=== PATIENT | female | born 1980 | race Caucasian/White ===

== ENCOUNTER → 2021-05-13 15:08 | Outpatient (BNVA) | payer OTHER, SELFPAY | PROVIDERS: PCP Pediatrics; Visit Provider Nurse Practitioner Family | DX: M47.22 Other spondylosis with radiculopathy, cervical region (principal) | CPT/HCPCS: 99202 ==

== ENCOUNTER 2021-07-22 06:18 | Outpatient (REF) | payer OTHER, SELFPAY ==
--- NOTE | ~2021-07-22 | FL_ITS ---
EXAMINATION: XR FLUOROSCOPY WITH IMAGES CLINICAL INFORMATION: M47.22 - Other spondylosis with radiculopathy cervical COMPARISON: None. TECHNIQUE: Fluoroscopy performed by Dr. Pino. Fluoroscopy time: 0.1 minutes DAP: 0.279 Gycm2 Images: 1 image is saved (AP view). FL/FL guidance in treatment room FINDINGS AND IMPRESSION: Fluoroscopic imaging equipment utilized during a cervical spine injection procedure. There is a right-sided positioning of a spinal needle at the C7-T1 level with flow of iodinated contrast around and superior to the needle tip. Please refer to the procedure report.
== END 2021-07-22 06:19 | disposition home or self-care (01) ==
LOC: HO.RADIR 06:18
PROVIDERS: Visit Provider Anesthesiology
DX: M47.22 Other spondylosis with radiculopathy, cervical region (principal)
CPT/HCPCS: J1100; J3300; Q9967

== ENCOUNTER 2022-06-07 21:43 | Emergency (ER) | payer OTHER, SELFPAY ==
--- NOTE | ~2022-06-07 | XR_ITS ---
EXAMINATION: XR CHEST CLINICAL INFORMATION: Shortness of breath COMPARISON: None TECHNIQUE: Frontal view of the chest was obtained. FINDINGS: The lungs are clear. No airspace consolidation, pleural effusion, or pneumothorax. The cardiomediastinal silhouette is within normal limits. No acute osseous injury. XR/XR chest 1V IMPRESSION: 1. No acute pulmonary process.
[2022-06-07 21:47] VITALS: BP 147/66; PULSE 110; RESP 20; TEMP 37.3; O2SAT 98; BMI 27.1
--- NOTE | 2022-06-07 22:17 | ED.ASTHMA ---
HPI - Asthma General Chief Complaint: Asthma Stated Complaint: Asthma Time Seen by Provider: 06/07/22 22:05 Source: patient Mode of arrival: ambulatory Limitations: no limitations History of Present Illness HPI Narrative: Patient comes to the emergency room complaining of 5 days of worsening cough, wheezing. Patient has been using her inhaler Related Data Home Medications Medication Instructions Recorded Confirmed albuterol sulfate 90 mcg/actuation 2 puff inhalation Q4H PRN wheezing 05/13/21 aerosol inhaler (ProAir HFA) clonazepam 2 mg tablet 2 mg PO TID PRN 05/13/21 cyclobenzaprine 10 mg tablet 10 mg PO TID PRN muscle spasm 05/13/21 fluoxetine 40 mg capsule 40 mg PO DAILY 05/13/21 ibuprofen 800 mg tablet 800 mg PO Q8H PRN pain 05/13/21 zolpidem 5 mg tablet 5 mg PO BEDTIME PRN 05/13/21 Previous Rx's Medication Instructions Recorded tizanidine 2 mg tablet 2 mg PO BEDTIME PRN muscle 05/28/21 spasticity #30 tabs albuterol sulfate 2.5 mg/3 mL 2.5 mg (3 mL) inhalation Q4-6H PRN 06/08/22 (0.083 %) solution for nebulization shortness of breath or wheezing #75 mL albuterol sulfate 90 mcg/actuation 2 puff inhalation Q4-6H PRN 06/08/22 aerosol inhaler shortness of breath or wheezing #8.5 grams prednisone 50 mg tablet 50 mg PO DAILY #5 tabs 06/08/22 Allergies Allergy/AdvReac Type Severity Reaction Status Date / Time No Known Allergies Allergy Verified 07/22/21 11:21 [facility] Past Medical History Medical History (Updated 06/07/22 @ 23:35 by Kari Ramirez MD) Anxiety Asthma Chronic post-traumatic stress disorder Long-term current use of anxiolytic medication Nonintractable headache Paresthesias Social History Social History Alcohol intake: current Alcohol intake frequency: holidays/special occasions only Patient Tobacco Use Status: Former Tobacco user Use of substances other than those prescribed or required for medical reasons: No Advance Directives: No Advance Directives Information Provided: No Patient : No Physical Exam Vital Signs: Vital Signs: Last Vital Signs Temp 98.4 F 06/08/22 00:44 Pulse 112 H 06/08/22 01:01 Resp 22 H 06/08/22 01:01 BP 143/74 H 06/08/22 00:44 Pulse Ox 99 06/08/22 00:44 O2 Del Method 06/08/22 00:44 BMI result Body Mass Index 27.1 Course Course Course Narrative: Patient also complaining of a migraine headache, requesting Fioricet which she takes at home After an hour long treatment, patient is overall feeling better, patient is still a bit wheezy. An additional hour long treatment has been requested. A thin saturation 98% on room air Patient minimally wheezing, moving air within normal limits, oxygen saturation remains at 99% on room air. MDM - Asthma Lab Data Labs: Lab Results 06/07/22 Range/Units 22:08 COVID-19 (SILVA) Negative (Negative) COVID-19 Clin Com See Note Imaging Data Chest x-ray: Radiologist's impression: FINDINGS: The lungs are clear. No airspace consolidation, pleural effusion, or pneumothorax. The cardiomediastinal silhouette is within normal limits. No acute osseous injury. XR/XR chest 1V IMPRESSION: ? 1. No acute pulmonary process. Discharge Plan Discharge Clinical Impression: Asthma with acute exacerbation, Headache, migraine Patient Disposition: Home, Self-Care Instructions: Asthma (ED), Migraine Headache (ED) Additional Instructions: Please follow-up with your primary care physician tomorrow. If you have any worsening or new symptoms, please return to the emergency room or call 911 Prescriptions: New prednisone 50 mg tablet 50 mg PO DAILY Qty: 5 0RF albuterol sulfate 2.5 mg /3 mL (0.083 %) solution for nebulization 2.5 mg inhalation Q4-6H PRN (Reason: shortness of breath or wheezing) Qty: 75 0RF albuterol sulfate 90 mcg/actuation HFA aerosol inhaler 2 puff inhalation Q4-6H PRN (Reason: shortness of breath or wheezing) Qty: 8.5 1RF No Action tizanidine 2 mg tablet 2 mg PO BEDTIME PRN (Reason: muscle spasticity) Qty: 30 0RF Rx Instructions: Stop cyclobenzaprine and trial tizanidine. Start with 1/2 tab, as medication can be sedating. clonazepam 2 mg tablet 2 mg PO TID PRN cyclobenzaprine 10 mg tablet 10 mg PO TID PRN (Reason: muscle spasm) fluoxetine 40 mg capsule 40 mg PO DAILY albuterol sulfate [ProAir HFA] 90 mcg/actuation HFA aerosol inhaler 2 puff inhalation Q4H PRN (Reason: wheezing) zolpidem 5 mg tablet 5 mg PO BEDTIME PRN ibuprofen 800 mg tablet 800 mg PO Q8H PRN (Reason: pain)
[2022-06-07] MEDS: Albuterol Sulfate (0.083%) 2.5 MG/3 ML VIAL.NEB 10 MG INHALE (22:37)
[2022-06-07 22:39] VITALS: PULSE 110; RESP 20
[2022-06-07 22:57] LABS: COVID-19 Test Negative (Negative); IDNOW Serial# 16C4AD1C
[2022-06-07] MEDS: methylPREDNISolone Sod Succ 125 MG/2 ML VIAL IVPUSH (23:04)
[2022-06-07] MEDS: Magnesium Sulfate/H2O 2 GM/50 ML PIGGYBACK IV (23:04)
--- NOTE | 2022-06-07 23:09 | PC.NURSE ---
patient a&ox3, lungs in/ex wheezing, iv inserted, pt medicated per order, call capellan within reach, will continue to monitor.
[2022-06-08] MEDS: Butalb/Acetamin/Caff 50/325/40 TABLET 1 TAB PO (00:26)
[2022-06-08 00:44] VITALS: BP 143/74; PULSE 98; RESP 18; TEMP 36.9; O2SAT 99
[2022-06-08] MEDS: Albuterol Sulfate (0.083%) 2.5 MG/3 ML VIAL.NEB 10 MG INHALE (01:00)
[2022-06-08 01:01] VITALS: PULSE 112; RESP 22; O2SAT 98
[2022-06-08] MEDS: Lidocaine HCl Viscous 2 % 15 ML SOLUTION MUCOUS MEM (01:43)
--- NOTE | 2022-06-08 01:50 | PC.NURSE ---
pt a&o, no chest pain. pt does have a dry cough. Pt medicated per Nov. Will continue to monitor.
[2022-06-08 04:24] VITALS: BP 120/71; PULSE 106; RESP 20; O2SAT 97
--- NOTE | 2022-06-08 04:25 | PC.NURSE ---
Reviewed discharge instruction with pt. pt verbalized understanding. O2 97 percent at discharge.
--- NOTE | 2022-06-08 04:28 | PC.NURSE ---
pt refusing inhaler at discharge, provider aware and new scrpit sent to pharmacy.
== END 2022-06-08 04:31 | disposition home or self-care (01) ==
PROVIDERS: Emergency Provider Emergency Medicine
DX: J45.901 Unspecified asthma with (acute) exacerbation (principal); G43.909 Migraine, unspecified, not intractable, without status migrainosus; Z20.822 Contact with and (suspected) exposure to COVID-19; Z87.891 Personal history of nicotine dependence; Z79.899 Other long term (current) drug therapy
CPT/HCPCS: 71045; 87635; 94640; 96365; 96366; 96375; 99284; 99285; J2930; J3475

== ENCOUNTER → 2022-07-08 16:52 | Outpatient (BNVA) | payer OTHER, SELFPAY | PROVIDERS: Visit Provider Anesthesiology | DX: M47.22 Other spondylosis with radiculopathy, cervical region (principal) | CPT/HCPCS: 99212 ==

== ENCOUNTER 2022-08-11 23:32 | Emergency (ER) | payer OTHER, SELFPAY ==
--- NOTE | ~2022-08-11 | CT_ITS ---
EXAMINATION: NONCONTRAST HEAD CT NONCONTRAST MAXILLOFACIAL CT NONCONTRAST CERVICAL SPINE CT INDICATION INFORMATION: Fall, pain COMPARISON: None TECHNIQUE: Separate noncontrast CT examinations of the head, maxillofacial bones, and cervical spine were performed. Coronal and sagittal images were created for each examination at the technologist workstation. DOSE LOWERING TECHNIQUES: This CT examination was performed using dose optimization techniques as appropriate, variously including the following: - Automated exposure control - Adjustment of mA and/or kV according to patient size (this includes techniques or standardized protocols for targeted exams were dose is matched to indication/reason for exam; i.e. extremities or head) - Use of iterative reconstruction technique DLP: 1408 mGy-cm FINDINGS: Head: There is a 5 mm hyperattenuating focus adjacent to the anterior falx on image 58/86, suspicious for trace subarachnoid hemorrhage. There is no evidence of acute territorial infarction. No abnormal mass-effect or midline shift is seen. Anguiano to white matter differentiation is well preserved. No extra-axial fluid collections are identified. The ventricles are normal in size. There is no abnormal attenuation within the brain parenchyma. No acute calvarial fracture is seen. The mastoid air cells are well aerated. Maxillofacial: There is a mildly displaced, comminuted fractures of the nasal bone with adjacent soft tissue swelling extending into the inferior frontal region. The frontal, maxillary, ethmoid, and sphenoid sinuses are well aerated. The uncinate process is normal bilaterally. The infundibula and middle meati are patent. There is leftward spurring of the nasal septum. The mandibular condyles are well-seated in the condylar fossa. The orbits demonstrate a normal appearance bilaterally. The globes are intact, and there are no suspicious findings to suggest retrobulbar hemorrhage. Cervical spine: There is anatomic alignment of the vertebral bodies and posterior elements. Vertebral body heights are maintained. There is mild disc space narrowing in the lower cervical spine with associated endplate osteophytes. No evidence of acute fracture. No prevertebral soft tissue swelling. Visualized portions of the lung apices are unremarkable. The thyroid gland is unremarkable. CT/CT cervical spine wo IV con IMPRESSION: 1. Small focus of hyperattenuation adjacent to the anterior falx, suspicious for trace subarachnoid hemorrhage. 2. Mildly displaced, comminuted nasal bone fracture with adjacent soft tissue swelling extending into the inferior frontal region. 3. No acute findings identified in the cervical spine. This critical result was discussed with Dr. Naidu on 08/12/2022 1:16 AM, and it was ascertained that the content and urgency of the report was understood at the time of direct communication.
--- NOTE | ~2022-08-11 | XR_ITS ---
EXAMINATION: XR CHEST CLINICAL INFORMATION: Fall with pain COMPARISON: 06/07/2022 TECHNIQUE: 2 views of the chest were obtained. FINDINGS: The lungs are hyperinflated compatible with COPD. The heart and pulmonary vessels appear normal. No infiltrates, effusions or lung masses are seen. No fractures are noted involving the bony thorax. XR/XR chest 2V IMPRESSION: COPD. No acute intrathoracic disease.
[2022-08-11 23:33] VITALS: BP 123/85; PULSE 92; RESP 16; TEMP 36.3; O2SAT 100; BMI 27.4
--- NOTE | 2022-08-11 23:46 | ED_ITS ---
HPI - Fall General Chief Complaint: Fall Stated Complaint: fall, hit head Time Seen by Provider: 08/11/22 23:46 Source: patient Mode of arrival: ambulatory Limitations: no limitations History of Present Illness HPI Narrative: 42-year-old female history of carpal tunnel syndrome of right wrist, cervical radiculopathy presenting to the emergency department status post tripping over box falling forward, face planting on the ground, hitting her head on a table, sustaining a laceration overlying right eyebrow. Patient tells me that when she fell she hit her head and lost consciousness for unknown amount of time she last remembers being awake at around 21:00. She tells me she was walking in a dark room to bring her child juice and tripped over a box. This was not witnessed by anyone. Patient is not on blood thinners. Patient complaining of headache, facial pain. Denies preceding symptoms to fall such as chest pain, shortness of breath, dizziness, vision changes, headache. At this time patient denies chest pain, shortness of breath, nausea, vomiting, abdominal pain, vision changes, dizziness, numbness, tingling, urinary/bowel incontinence/retention, back pain, numbness, tingling, saddle paresthesias. Denies alcohol abuse. Related Data Home Medications Medication Instructions Recorded Confirmed fluoxetine 40 mg capsule 40 mg PO DAILY 05/13/21 07/08/22 ibuprofen 800 mg tablet 800 mg PO Q8H PRN pain 05/13/21 07/08/22 zolpidem 5 mg tablet 5 mg PO BEDTIME PRN 05/13/21 07/08/22 Previous Rx's Medication Instructions Recorded albuterol sulfate 2.5 mg/3 mL 2.5 mg (3 mL) inhalation Q4-6H PRN 06/08/22 (0.083 %) solution for nebulization shortness of breath or wheezing #75 mL albuterol sulfate 90 mcg/actuation 2 puff inhalation Q4-6H PRN 06/08/22 aerosol inhaler shortness of breath or wheezing #8.5 grams fluticasone propionate 45 2 puff inhalation BID #8 grams 06/08/22 mcg-salmeterol 21 mcg/actuation HFA inhaler (Advair HFA) prednisone 50 mg tablet 50 mg PO DAILY #5 tabs 06/08/22 cyclobenzaprine 10 mg tablet 10 mg PO BEDTIME PRN muscle spasm 08/11/22 #7 tabs lidocaine 5 % topical patch 1 patch topical DAILY PRN pain #15 08/11/22 ea Allergies Allergy/AdvReac Type Severity Reaction Status Date / Time No Known Allergies Allergy Verified 08/11/22 23:38 Review of Systems Review of Systems: Constitutional : No Weight loss, No Fever, No Chills, No Fatigue, No Malaise ENT/Mouth : No sore throat, No Rhinorrhea, + facial pain Eyes: No Eye Pain, No Swelling, No Redness Cardiovascular : No Chest Pain, No SOB, No Dyspnea on Exertion, No Orthopnea, No Edema, No Palpitations Respiratory : No Cough, No Sputum, No Wheezing Gastrointestinal : No Nausea, No Vomiting, No Diarrhea, No Constipation, No abdominal Pain, No Hematochezia, No Melena Genitourinary : No Dysuria, No Urinary Frequency, No Hematuria, Musculoskeletal : No joint pain, No Myalgias, No Joint Swelling Skin : No Skin Lesions, No rash, + laceration Neuro : No Weakness, No Numbness, No Dizziness, + Headache Psych : No Anxiety/Panic, No Depression All other systems reviewed and are negative Yes all other systems are reviewed and are negative [facility] Past Medical History Attestation statement: The following information was validated with the patient. Source: old records reviewed and nursing notes reviewed Medical History Anxiety Asthma Chronic post-traumatic stress disorder Long-term current use of anxiolytic medication Nonintractable headache Paresthesias Social History Social History Alcohol intake: current Alcohol intake frequency: holidays/special occasions only Patient Tobacco Use Status: Former Tobacco user Advance Directives: No Advance Directives Information Provided: Yes Physical Exam Vital Signs: Vital Signs: Last Vital Signs Temp 97.3 F 08/11/22 23:33 Pulse 92 08/11/22 23:33 Resp 16 08/11/22 23:33 BP 123/85 08/11/22 23:33 Pulse Ox 100 08/11/22 23:33 O2 Del Method 08/11/22 23:33 BMI result Body Mass Index 27.4 vss Appearance: Alert.? Oriented X3.? No acute distress.? Head: Normocephalic, atraumatic, no step-offs or deformities Eyes: Pupils equal, round and reactive to light.? Extraocular movements intact and pain-free. ENT: Pharynx normal.? Pain with palpation overlying facial bone and zygomatic area. Neck: Normal inspection.? Neck supple.? CVS: Normal heart rate and rhythm.? Pulses normal.? Respiratory: No respiratory distress.? Breath sounds normal.? Abdomen: Soft and nontender.? Skin: Skin warm and dry.? Normal skin color.? Normal skin turgor.?+ 2 cm linear laceration overlying right eyebrow, no evidence of foreign bodies within. + small lac to upper lip Extremities: No lower extremity edema.? No calf ttp. 5/5 strength to bilateral upper and lower extremities Back: No midline tenderness, no C-spine tenderness, full range of motion, no CVA tenderness bilaterally Neuro: Oriented X 3.? No motor deficit.? No sensory deficit. CN 2-12 intact . Patient following commands. Normal [id number], [id number], steady tandem gait with normal coordination. Course Reevaluation(s) Reevaluation #1: Labs ordered, CT scans ordered and pending. Trauma scan will be done. Laceration repaired. Sign out to doctors [facility]. Fentanyl will be given for pain. Dr. Naidu feels no need for CT abd and pelvis or chest. He will do a fast scan. Time: 00:12 MDM - Fall [facility] Narrative Medical decision making narrative: [id number] 42-year-old female presents status post trip and fall, hitting her face on a table, sustaining laceration to right eyebrow, pain to nose. Complaints of headache, facial pain. Not on blood thinners. Denies EtOH. Physical examination with laceration overlying right eyebrow and laceration to right upper lip, pain with palpation of nose, and zygomatic area. Neuro nonfocal. Cerebellar intact. Patient following commands alert and oriented x4. Regular rate and rhythm. Lungs clear, abdomen soft nontender nondistended. GCS of 15, NIH stroke scale 0. Concerns for possible concussion, will rule out facial fractures. Concerns for possible nasal fracture. Will repair lacerations. Will rule out intracranial hemorrhage, subarachnoid hemorrhage, internal bleeding. Unlikely stroke, posterior stroke. Plan at this time is to obtain imaging, a repair laceration of eyebrow no need to repair lip lac. Medical Records Attestation: I reviewed the patient's medical records. Lab Data Attestation: I reviewed the patient's lab results. Result diagrams: 08/12/22 00:04 08/12/22 00:04 Labs: Lab Results 08/12/22 08/12/22 Range/Units 00:04 00:04 WBC 10.6 (4.8-10.8) X10*3/uL RBC 4.18 L (4.20-5.50) X10*6/uL Hgb 12.6 (12.0-16.0) g/dl Hct 37.8 (37.0-47.0) % MCV 90.4 (80.0-98.0) fL MCH 30.1 (27.0-33.0) pg MCHC 33.3 (31.0-35.0) g/dl RDW 13.3 (11.0-16.0) % Plt Count 259 (160-400) X10*3/uL MPV 9.7 (9.4-12.3) fL Immature Gran % (Auto) 0.6 H (0.0-0.4) % Neut % (Auto) 79.8 H (45-73) % Lymph % (Auto) 11.7 L (20-40) % Ashley % (Auto) 6.1 (2-11) % Eos % (Auto) 1.4 (0-4) % Baso % (Auto) 0.4 (0-2) % Lymph # (Auto) 1.2 (1.2-4.9) X10*3/uL Ashley # (Auto) 0.7 (0.1-1.2) X10*3/uL Eos # (Auto) 0.2 (0.0-0.4) X10*3/uL Baso # (Auto) 0.0 (0.0-0.2) X10*3/uL Abs Immat Gran (auto) 0.06 H (0.00-0.03) X10*3/uL Absolute Neuts (auto) 8.5 H (2.0-8.3) x10*3/uL Absolute Nucleated RBC 0.000 (0.0-0.012) X10*3/uL Nucleated RBC % (auto) 0.0 (0.0-0.2) /100WBC PT 11.4 (10.0-13.1) SEC INR 1.0 (0.9-1.1) Critical Care Time Critical Care Time Critical Care Time: No Discharge Plan Discharge Clinical Impression: Concussion with loss of consciousness, Laceration, Nose pain, Closed TBI (traumatic brain injury) Patient Disposition: Home, Self-Care Instructions: Concussion (ED), Post Concussion Syndrome (ED) Additional Instructions: Take your medications as prescribed. If you were prescribed antibiotics today, it is important that you take your medication to their entirety, do not skip any doses, do not finish them early. Follow-up with your primary care provider this week. Follow up with neurology Return to the emergency department with new or worsening symptoms. Such as fevers, chills, chest pain, shortness of breath, nausea, vomiting, dizziness, headache, vision changes, lethargy In case of emergency call 911 Return in 5-7 days for suture removal. Please rest her brain, limit screen time, do not participate in sports for 2-3 weeks or until medically cleared. You likely have a concussion. Please return with any signs and symptoms of post concussive syndrome such as headache, vision changes, dizziness, or any new or worsening symptoms such as altered mental status, seizure-like activity. You can take ibuprofen every 6 hours, Tylenol every 4 as needed for pain or discomfort. Prescriptions: New cyclobenzaprine 10 mg tablet 10 mg PO BEDTIME PRN (Reason: muscle spasm) Qty: 7 0RF lidocaine 5 % adhesive patch,medicated 1 patch topical DAILY PRN (Reason: pain) Qty: 15 0RF Rx Instructions: leave on most painful area for up to 12 hrs No Action prednisone 50 mg tablet 50 mg PO DAILY Qty: 5 0RF albuterol sulfate 2.5 mg /3 mL (0.083 %) solution for nebulization 2.5 mg inhalation Q4-6H PRN (Reason: shortness of breath or wheezing) Qty: 75 0RF albuterol sulfate 90 mcg/actuation HFA aerosol inhaler 2 puff inhalation Q4-6H PRN (Reason: shortness of breath or wheezing) Qty: 8.5 1RF Advair HFA 45-21 mcg/actuation HFA aerosol inhaler 2 puff inhalation BID Qty: 8 0RF Rx Instructions: administer with spacer fluoxetine 40 mg capsule 40 mg PO DAILY zolpidem 5 mg tablet 5 mg PO BEDTIME PRN ibuprofen 800 mg tablet 800 mg PO Q8H PRN (Reason: pain) Referrals: [facility] [place] Group] - 1 week Physician,Unknown J [Primary Care Provider] - 2 days
--- OUTSIDE RECORDS SUMMARY | 2022-08-12 00:05 | XMS_ITS | Continuity of Care Document ---
:1980 Author Organization [facility] Address [address] [place] [address]- Care Team Providers Name Role Phone Gale KIRBY, Laurence Primary Care Physician [phone] Encounter [facility] Date(s): 04/15/22 - 05/15/22 [facility] [address] [place], [place] [address] Allergies, Adverse Reactions, Alerts No Known Allergies Immunizations Given and Recorded Vaccine Date Status Refusal Reason pneumococcal 23-valent vaccine 08/11/11 Given influenza virus vaccine, inactivated 08/11/11 Given influenza virus vaccine, inactivated 09/17/08 Given Medications albuterol 0.083% inhalation solution 3 mL = 2.5 mg, Inhalation, Every 6 hours, PRN Wheezing/Shortness of Breath, # 360 mL, 0 Refills, Maintenance, Solution Start Date: 10/09/11 Stop Date: 11/08/11 Status: Orderedalbuterol 0.083% inhalation solution 3 mL = 2.5 mg, Inhalation, Every 6 hours, # 36 mL, 0 Refills, Maintenance, Solution Start Date: 10/09/11 Stop Date: 10/12/11 Status: Orderedalbuterol CFC free 90 mcg/inh inhalation aerosol 1 puffs, Inhalation, 4 times a day, PRN for wheezing, # 18 Gm, 0 Refills, Maintenance, Aerosol Start Date: 10/09/11 Stop Date: 11/08/11 Status: Orderedclonazepam 2 mg oral tablet 1 tablet = 2 mg, By Mouth, 3 times a day, # 9 tablet, 0 Refills, Maintenance, Tablet Start Date: 10/09/11 Stop Date: 10/12/11 Status: OrderedSymbicort 80mcg/4.5mcg Inhaler 2 puffs, Inhalation, 2 times a day, # 10 Gm, 0 Refills, Maintenance, Aerosol Start Date: 10/09/11 Stop Date: 11/08/11 Status: Ordered Problem List Condition Effective Dates Status Health Status Informant Anxiety disorder(Confirmed) Active Asthma - currently active(Confirmed) Active PPH - 02/01/08 Active hemorrhage(Confirmed)1 1PPH at delivery, no transfusion. Care Team PersonnelName: Gale KIRBY , Laurence Address: [address] [place] [address]
[2022-08-12 00:10] LABS: Basophils Percent Auto 0.4 % (0-2); Eosinophils Absolute Auto 0.2 X10*3/uL (0.0-0.4); Eosinophils Percent Auto 1.4 % (0-4); Hematocrit 37.8 % (37.0-47.0); Hemoglobin 12.6 g/dl (12.0-16.0); Imm Gran Abs Auto 0.06 X10*3/uL (0.00-0.03); Imm Gran Pct Auto 0.6 % (0.0-0.4); Lymphocytes Absolute Auto 1.2 X10*3/uL (1.2-4.9); Lymphocytes Percent Auto 11.7 % (20-40); MANUAL DIFF FLAG NO; Mean Corpuscular HGB Conc 33.3 g/dl (31.0-35.0); Mean Corpuscular Hemoglobin 30.1 pg (27.0-33.0); Mean Corpuscular Volume 90.4 fL (80.0-98.0); Mean Platelet Volume 9.7 fL (9.4-12.3); Monocytes Absolute Auto 0.7 X10*3/uL (0.1-1.2); Monocytes Percent Auto 6.1 % (2-11); Neutrophils Absolute Auto 8.5 x10*3/uL (2.0-8.3); Neutrophils Percent Auto 79.8 % (45-73); Platelet Count 259 X10*3/uL (160-400); Red Blood Count 4.18 X10*6/uL (4.20-5.50); Red Cell Distribution Width 13.3 % (11.0-16.0); White Blood Count 10.6 X10*3/uL (4.8-10.8)
[2022-08-12 00:15] LABS: Prothrombin Time 11.4 SEC (10.0-13.1)
[2022-08-12 00:16] VITALS: RESP 17
[2022-08-12] MEDS: fentaNYL citrate/PF 100 MCG/2 ML VIAL 25 MCG IVPUSH (00:16)
[2022-08-12] MEDS: Diphth,Pertus(ACell),Tet Adult 0.5 ML SYRINGE IM (00:17)
[2022-08-12] MEDS: 0.9 % Sodium Chloride 1,000 ML 999 ML IV (00:19)
[2022-08-12 00:24] LABS: Ethanol < 10 mg/dL
[2022-08-12 00:27] LABS: Alanine Aminotransferase 16 U/L (0-31); Albumin Level 4.4 g/dL (3.5-5.0); Alkaline Phosphatase 80 U/L (39-117); Anion Gap 13 (12-20); Aspartate Amino Transferase 19 U/L (5-31); Bilirubin Total 0.2 mg/dL (0.0-1.0); Blood Urea Nitrogen 10 mg/dL (9-16); Calcium 9.7 mg/dL (8.4-10.2); Carbon Dioxide 22 mmol/L (22-29); Chloride 106 mmol/L (96-108); Creatinine Clr Calc Pharmacy 99.2; Estimated Glomerular Filt Rate > 60; Glucose Random 131 mg/dL (60-115); Potassium 4.1 mmol/L (3.3-5.1); Sodium 137 mmol/L (135-145); Total Protein 6.9 g/dL (6.5-8.0)
--- NOTE | 2022-08-12 00:31 | PC.NURSE ---
patient to imaging at this time.
[2022-08-12 00:58] LABS: HCG Quantitative < 2 mIU/mL
[2022-08-12 06:37] LABS: Influenza A PCR NEGATIVE (Negative); Influenza B PCR NEGATIVE (Negative)
[2022-08-12 06:38] LABS: Resp Syncy Virus RNA Qual PCR NEGATIVE (Negative); SARS COV2 PCR INHOUSE NEGATIVE (Negative)
== END 2022-08-12 06:11 | disposition home or self-care (01) ==
LOC: HO.ED 08-12 00:03
PROVIDERS: Physician Assistant; Emergency Provider Internal Medicine
DX: S06.0XAA Concussion with loss of consciousness status unknown, initial encounter (principal); S01.111A Laceration without foreign body of right eyelid and periocular area, initial encounter; S01.511A Laceration without foreign body of lip, initial encounter; W01.190A Fall on same level from slipping, tripping and stumbling with subsequent striking against furniture, initial encounter; J34.89 Other specified disorders of nose and nasal sinuses; Z20.822 Contact with and (suspected) exposure to COVID-19; Z87.891 Personal history of nicotine dependence; Y93.89 Activity, other specified; Y92.032 Bedroom in apartment as the place of occurrence of the external cause; Y99.9 Unspecified external cause status
CPT/HCPCS: 0241U; 12011; 36415; 70450; 70486; 71046; 72125; 80053; 82077; 82550; 84702; 85025; 85610; 90471; 90715; 96374; 99282; 99284; J3010

== ENCOUNTER 2022-08-22 20:47 | Emergency (ER) | payer OTHER, SELFPAY ==
--- NOTE | ~2022-08-22 | CT_ITS ---
EXAMINATION: CT HEAD WITHOUT CONTRAST CLINICAL INFORMATION: 08/02 small subarachnoid, fell again 08/20 LOC COMPARISON: CT head 08/12/2022 TECHNIQUE: Contiguous axial imaging was performed from the skull base to vertex without intravenous administration of contrast. Coronal and sagittal reformatted images are performed at the CT scanner. [This CT examination was performed using dose optimization techniques as appropriate, variously including the following: *Automated exposure control *Adjustment of mA and/or kV according to patient size (this includes techniques or standardized protocols for targeted exams where dose is matched to indication/reason for exam; i.e. extremities or head) *Use of iterative reconstruction technique] DLP: 622 mGy-cm. FINDINGS: There is no evidence of acute intracranial hemorrhage or acute territorial infarction. The previously seen small acute hemorrhage on prior CAT scan 08/12/2022 adjacent to the right side of the anterior falx has resolved. No abnormal mass-effect or midline shift is seen. Anguiano to white matter differentiation is well preserved. No extra-axial fluid collections are identified. The ventricles are normal in size. There is no abnormal attenuation within the brain parenchyma. There is no osseous abnormality. The mastoid air cells and visualized portions of the paranasal sinuses are well-aerated. CT/CT head/brain wo IV con IMPRESSION: No acute intracranial pathology.
[2022-08-22 20:54] VITALS: BP 140/78; PULSE 106; RESP 17; TEMP 36.8; O2SAT 96; BMI 23.0
--- NOTE | 2022-08-22 21:07 | ED.GENADULT ---
HPI - General Adult General Chief complaint: General Medical Stated complaint: suture removal,fell 08/21 laceration back of head Time Seen by Provider: 08/22/22 20:53 Source: patient Mode of arrival: ambulatory Limitations: no limitations History of Present Illness HPI narrative: Patient comes to the emergency room accompanied by her mother. patient is here to have her sutures removed in her eyebrow. On August 11, patient fell, she had a punctured subarachnoid hemorrhage and was transferred to [facility] from this hospital. Patient has been having continuous headaches since then also complaining lightheadedness, dizziness. Patient states that 2 days ago, patient fell again, landed on the back of her head unless consciousness. Patient states that she did not have transport to come the hospital and did not come. Patient had a laceration to her scalp 2 days ago, states that she treated it by herself at home. Related Data Home Medications Medication Instructions Recorded Confirmed fluoxetine 40 mg capsule 40 mg PO DAILY 05/13/21 07/08/22 ibuprofen 800 mg tablet 800 mg PO Q8H PRN pain 05/13/21 07/08/22 zolpidem 5 mg tablet 5 mg PO BEDTIME PRN 05/13/21 07/08/22 Previous Rx's Medication Instructions Recorded albuterol sulfate 2.5 mg/3 mL 2.5 mg (3 mL) inhalation Q4-6H PRN 06/08/22 (0.083 %) solution for nebulization shortness of breath or wheezing #75 mL albuterol sulfate 90 mcg/actuation 2 puff inhalation Q4-6H PRN 06/08/22 aerosol inhaler shortness of breath or wheezing #8.5 grams fluticasone propionate 45 2 puff inhalation BID #8 grams 06/08/22 mcg-salmeterol 21 mcg/actuation HFA inhaler (Advair HFA) prednisone 50 mg tablet 50 mg PO DAILY #5 tabs 06/08/22 cyclobenzaprine 10 mg tablet 10 mg PO BEDTIME PRN muscle spasm 08/11/22 #7 tabs lidocaine 5 % topical patch 1 patch topical DAILY PRN pain #15 08/11/22 ea cephalexin 500 mg tablet 500 mg PO Q6H 10 days #40 tabs 08/12/22 oxycodone 5 mg tablet 5 mg PO BID PRN pain #7 tabs 08/22/22 Allergies Allergy/AdvReac Type Severity Reaction Status Date / Time No Known Allergies Allergy Verified 08/11/22 23:38 Review of Systems Review of Systems: Constitutional : No Weight loss, No Fever, No Chills, No Night Sweats, No Fatigue, No Malaise ENT/Mouth : No Hearing loss, No Ear Pain, No Nasal Congestion, No Sinus Pain, No Hoarseness, No sore throat, No Rhinorrhea, No Swallowing Difficulty Eyes: No Eye Pain, No Swelling, No Redness, No Foreign Body, No Discharge, No Vision Changes Cardiovascular : No Chest Pain, No SOB, No Dyspnea on Exertion, No Orthopnea, No Edema, No Palpitations Respiratory : No Cough, No Sputum, No Wheezing, No Smoke Exposure, No Dyspnea Gastrointestinal : No Nausea, No Vomiting, No Diarrhea, No Constipation, No abdominal Pain, No Hematochezia, No Melena Genitourinary : no irregular bleeding, No Dysuria, No Urinary Frequency, No Hematuria, No Urinary Incontinence, No Urgency, No Flank Pain, No Urinary Flow Changes, No Hesitancy Musculoskeletal : No joint pain, No Myalgias, No Joint Swelling Skin : Laceration and eyebrow healing, new laceration in the back of the head 48+ hours now treated at home Neuro : No Weakness, No Numbness, No Paresthesias, No Loss of Consciousness, complaining of constant headache since August 12 and multiple episodes of dizziness since the fall On August 12 Psych : No Anxiety/Panic, No Depression, No SI/HI/AH/VH, No Social Issues, Heme/Lymph: No Bruising, No Bleeding,No Lymphadenopathy Endocrine : No Polyuria, No Polydipsia, No Temperature Intolerance [facility] Past Medical History Medical History Anxiety Asthma Chronic post-traumatic stress disorder Long-term current use of anxiolytic medication Nonintractable headache Paresthesias Social History Social History Alcohol intake: current Alcohol intake frequency: holidays/special occasions only Patient Tobacco Use Status: Former Tobacco user Advance Directives: No Advance Directives Information Provided: No Physical Exam ED Vital Signs: Vital Signs - 24 hr 08/22/22 20:54 08/22/22 22:38 Temperature 98.3 F 97.4 F Pulse Rate 106 H 80 Respiratory Rate 17 18 Blood Pressure 140/78 H 148/86 H Pulse Oximetry 96 100 Oxygen Delivery Method Room Air Room Air BMI result Body Mass Index 23.0 Const Other: Appearance: Alert. Oriented X3. No acute distress. Eyes: Pupils equal, round and reactive to light. ENT: Pharynx normal. Neck: Normal inspection. Neck supple. No lymph nodes noted. No crepitus CVS: Normal heart rate and rhythm. Pulses normal. Normal S1 and S2 Respiratory: No respiratory distress. Breath sounds normal. No Wheezing. No rales Abdomen: Soft and nontender. No rigidity. No distention. Skin: Skin warm and dry. wheeled healed laceration in left eyebrow. Laceration in scalp is healing as well, no signs of cellulitis, Extremities: No lower extremity edema. No Lacerations. No Rash Neuro: Oriented X 3. No motor deficit. No sensory deficit. Moving all extremities. No slurred speech. CN 2 through 12 grossly intact Psych: calm, cooperative, normal affect Course Course Course Narrative: patient came for a suture removal. However, patient states that she fell 2 days ago and hit the back of her head and lost consciousness. On August 12, 10 days ago, patient was diagnosed with a small subarachnoid hemorrhage that required transferred to [facility]. I discussed with the patient that he would be best to do another CT scan of her head since she had recent trauma 2 days ago and her headache got worse, most likely her concussion got worse but I would like to rule out a worsening subarachnoid hemorrhage. Patient agrees with plan I discussed the CT scan with the patient, no acute findings, the previous small acute hemorrhage has resolved patient received 1 dose of p.o. tramadol, patient still having headache, patient will be prescribed oxycodone. patient states that she has an appointment pending with Neurology for next week. Medications Administered Discontinued Medications Generic Name Dose Route Start Last Admin Trade Name Freq PRN Reason Stop Dose Admin Tramadol HCl 50 mg 08/22/22 21:07 08/22/22 21:14 Tramadol Hcl 50 Mg Tablet PO 08/22/22 21:08 50 mg ONCE ONE Administration Medical Decision Making Medical Decision Making Differential Diagnoses: Differential diagnosis ( concussion, subarachnoid hemorrhage, tension headache) Independent interpretation of EKG, rhythm strip, radiology study: Independent interp EKG,rhythm strip, radiology study I performed an independent interpretation of the: EKG and CT Scan ( my interpretation is no acute findings, no bleed visualized) My interpretation is sinus rhythm, heart rate 85, no ST segment depression or elevation, no T-wave inversion, QTC 433 Radiology report: FINDINGS: There is no evidence of acute intracranial hemorrhage or acute territorial infarction. The previously seen small acute hemorrhage on prior CAT scan 08/12/2022 adjacent to the right side of the anterior falx has resolved. No abnormal mass-effect or midline shift is seen. Anguiano to white matter differentiation is well preserved. No extra-axial fluid collections are identified. The ventricles are normal in size. There is no abnormal attenuation within the brain parenchyma. There is no osseous abnormality. The mastoid air cells and visualized portions of the paranasal sinuses are well-aerated. ? CT/CT head/brain wo IV con IMPRESSION: No acute intracranial pathology. Discharge Plan Discharge Clinical Impression: Visit for suture removal, Concussion, Fall Patient Disposition: Home, Self-Care Instructions: Concussion (ED) Additional Instructions: Please follow-up with your primary care physician tomorrow. If you have any worsening or new symptoms, please return to the emergency room or call 911 Prescriptions: New oxycodone 5 mg tablet 5 mg PO BID PRN (Reason: pain) Qty: 7 0RF Rx Instructions: Partial Fill upon patient request. No Action prednisone 50 mg tablet 50 mg PO DAILY Qty: 5 0RF albuterol sulfate 2.5 mg /3 mL (0.083 %) solution for nebulization 2.5 mg inhalation Q4-6H PRN (Reason: shortness of breath or wheezing) Qty: 75 0RF albuterol sulfate 90 mcg/actuation HFA aerosol inhaler 2 puff inhalation Q4-6H PRN (Reason: shortness of breath or wheezing) Qty: 8.5 1RF Advair HFA 45-21 mcg/actuation HFA aerosol inhaler 2 puff inhalation BID Qty: 8 0RF Rx Instructions: administer with spacer cyclobenzaprine 10 mg tablet 10 mg PO BEDTIME PRN (Reason: muscle spasm) Qty: 7 0RF lidocaine 5 % adhesive patch,medicated 1 patch topical DAILY PRN (Reason: pain) Qty: 15 0RF Rx Instructions: leave on most painful area for up to 12 hrs cephalexin 500 mg tablet 500 mg PO Q6H 10 Days Qty: 40 0RF fluoxetine 40 mg capsule 40 mg PO DAILY zolpidem 5 mg tablet 5 mg PO BEDTIME PRN ibuprofen 800 mg tablet 800 mg PO Q8H PRN (Reason: pain)
[2022-08-22] MEDS: traMADoL HCL 50 MG TABLET PO (21:14)
--- NOTE | 2022-08-22 21:15 | PC.NURSE ---
Pt to CT
--- NOTE | 2022-08-22 21:17 | ECG_ITS ---
Test Reason : dizziness Blood Pressure : / mmHG Vent. Rate : 085 BPM Atrial Rate : 085 BPM P-R Int : 136 ms QRS Dur : 092 ms QT Int : 364 ms P-R-T Axes : 056 057 043 degrees QTc Int : 433 ms Normal sinus rhythm Normal ECG No previous ECGs available Referred By: Kari Ramirez Electronically Signed By:ANDRÉS GIBBS MD
[2022-08-22 22:38] VITALS: BP 148/86; PULSE 80; RESP 18; TEMP 36.3; O2SAT 100
[2022-08-22 23:05] VITALS: BP 148/78; PULSE 87; RESP 20; O2SAT 100
== END 2022-08-22 23:07 | disposition home or self-care (01) ==
PROVIDERS: Emergency Provider Emergency Medicine
DX: Z48.02 Encounter for removal of sutures (principal); S01.01XD Laceration without foreign body of scalp, subsequent encounter; W19.XXXD Unspecified fall, subsequent encounter; Z91.81 History of falling; S06.0XAA Concussion with loss of consciousness status unknown, initial encounter; W19.XXXA Unspecified fall, initial encounter; Y93.9 Activity, unspecified; Y92.039 Unspecified place in apartment as the place of occurrence of the external cause; Y99.9 Unspecified external cause status
CPT/HCPCS: 70450; 93005; 99284

== ENCOUNTER 2023-05-12 13:08 | Outpatient (REF) | payer OTHER, SELFPAY ==
--- NOTE | 2023-05-12 13:40 | EMG_ITS ---
Chief complaint: Right-sided neck pain, tension headache with numbness/pain in right hand Reason for referral: Evaluate for Carpal Tunnel Syndrome versus radiculopathy Referred by: Dr. Pino Procedure done: Right upper extremity NCS/EMG Precautions and/or limitations: None The limb temperature was monitored continuously and remained between 32-36 degrees C during the performance of the NCS. Nerve Conduction Studies Anti Sensory Summary Table ?Stim Site NR Onset (ms) Norm Onset (ms) Peak (ms) Norm Peak (ms) O-P Amp (?V) Norm O-P Amp Site1 Site2 Delta-0 (ms) Dist (cm) Clayton (m/s) Norm Clayton (m/s) Right Median Anti Sensory (2nd Digit) Wrist ? 2.3 2.9 <3.6 58.4 >10 Wrist 2nd Digit 2.3 14.0 61 Right Ulnar Anti Sensory (5th Digit) Wrist ? 2.4 2.9 <3.7 49.4 >15.0 Wrist 5th Digit 2.4 14.0 58 Motor Summary Table ?Stim Site NR Onset (ms) Norm Onset (ms) O-P Amp (mV) Norm O-P Amp iAmp (mV) Amp (1st) (%) Site1 Site2 Delta-0 (ms) Dist (cm) Clayton (m/s) Norm Clayton (m/s) Right Median Motor (Abd Poll Brev) Wrist ? 2.8 <3.9 5.7 >4.5 6.7 100.0 Elbow Wrist 3.8 22.5 59 >45 Elbow ? 6.6 4.3 5.0 75.4 Right Ulnar Motor (Abd Dig Minimi) Wrist ? 2.7 <3.0 7.8 >5 9.5 100.0 B Elbow Wrist 2.9 18.5 64 >45 B Elbow ? 5.6 6.8 8.7 87.2 A Elbow B Elbow 1.5 10.0 67 >45 A Elbow ? 7.1 7.4 8.9 94.9 Comparison Summary Table ?Stim Site NR Peak (ms) Norm Peak (ms) P-T Amp (?V) Site1 Site2 Delta-P (ms) Norm Delta (ms) Right Median/Radial Dig I Comparison (Digit 1 - 10cm) Median ? 2.4 <2.9 62.3 Median Radial 0.2 Radial ? 2.6 <2.8 17.9 EMG ?Side Muscle Nerve Root Ins Act Fibs Psw Amp Dur Poly Recrt Int Pat Comment Right 1stDorInt Ulnar C8-T1 Nml Nml Nml Nml Nml 0 Nml Complete Right FlexCarRad Median C6-7 Nml Nml Nml Nml Nml 0 Nml Complete Right Biceps Musculocut C5-6 Nml Nml Nml Nml Nml 0 Nml Complete Right Triceps Radial C6-7-8 Nml Nml Nml Nml Nml 0 Nml Complete Right Deltoid Axillary C5-6 Nml Nml Nml Nml Nml 0 Nml Complete Paraspinal EMG ?Side Muscle Nerve Root Ins Act Fibs Psw Comment Right Cervical Upper Rami Nml Nml Nml Right Cervical Mid Rami Nml Nml Nml Right Cervical Lower Rami Nml Nml Nml FINDINGS: All motor and sensory nerves tested showed normal latencies, amplitudes and conduction velocities. Concentric needle EMG was performed in selected muscles of the right upper extremity and cervical paraspinals. Study did not reveal signs of electric abnormalities as shown in the table below. IMPRESSION: 1. This is normal study. 2. There is no electrodiagnostic evidence for median neuropathy, ulnar neuropathy, brachial plexopathy, or cervical radiculopathy. Thank you for your kind referral. Bessie Lakhani MD, SOFYA Board Certified, [place] [employer] and [employer] (ABPMR) Board Certified, [place] Board [employer] Electrodiagnostic [employer] (ABEM) [facility]
== END 2023-05-12 13:09 | disposition home or self-care (01) ==
LOC: HO.NEURO 13:08
PROVIDERS: Visit Provider Anesthesiology
DX: G56.01 Carpal tunnel syndrome, right upper limb (principal)
CPT/HCPCS: 95886; 95909

== ENCOUNTER 2023-05-24 10:50 | Outpatient (AMB) | payer OTHER, SELFPAY ==
[2023-05-24 11:10] VITALS: BP 126/74; PULSE 106; O2SAT 98; BMI 22.7
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
== END 2023-05-24 12:04 | disposition home or self-care (01) ==
PROVIDERS: Visit Provider Anesthesiology
DX: M47.22 Other spondylosis with radiculopathy, cervical region (principal); M77.10 Lateral epicondylitis, unspecified elbow; M77.01 Medial epicondylitis, right elbow
CPT/HCPCS: 99214

== ENCOUNTER → 2023-05-24 10:50 | Outpatient (BNVA) | payer OTHER, SELFPAY | PROVIDERS: Visit Provider Anesthesiology | DX: M47.22 Other spondylosis with radiculopathy, cervical region (principal); M77.10 Lateral epicondylitis, unspecified elbow; M77.01 Medial epicondylitis, right elbow | CPT/HCPCS: 99212 ==

== ENCOUNTER 2023-07-06 06:06 | Outpatient (REF) | payer OTHER, SELFPAY ==
--- NOTE | ~2023-07-06 | FL_ITS ---
EXAMINATION: XR FLUOROSCOPY WITH IMAGES CLINICAL INFORMATION: Other spondylosis with radiculopathy, cervical region. Cervical injection. COMPARISON: None available. TECHNIQUE: Fluoroscopy Supervised By: Dr. Angel Pino. Fluoroscopy Time: 0.8 minutes. Cumulative Dose: 1.72 mGy. DAP: 0.0248 Gycm2. Images: 8. FINDINGS: Images demonstrate needle placement and contrast adjacent to the lateral bilateral cervical vertebrae at C3-C4, C4-C5 and C5-C6 FL/FL guidance in treatment room IMPRESSION: Fluoroscopy guidance for pain management procedure
== END 2023-07-06 06:07 | disposition home or self-care (01) ==
LOC: CF 06:06
PROVIDERS: Visit Provider Anesthesiology
DX: M47.22 Other spondylosis with radiculopathy, cervical region (principal); M77.01 Medial epicondylitis, right elbow
CPT/HCPCS: 64490; 64491; J2795; J3301; Q9967

== ENCOUNTER 2023-07-06 08:39 | Outpatient (AMB) | payer OTHER, SELFPAY ==
[2023-07-06 08:52] VITALS: BP 132/82; PULSE 78; O2SAT 95; BMI 28.9
--- NOTE | 2023-07-06 08:52 | MHC.OFFVIS ---
Intake Vital Signs 07/06/23 08:52 07/06/23 10:20 Height 5 ft 3 in 5 ft 3 in Weight 163 lb 163 lb BMI 28.9 28.9 BP 132/82 132/82 Blood Pressure Location Lt brachial Lt brachial Position Sitting Sitting Respiration 16 Pulse 78 77 Pulse Source Pulse Oximeter Pulse Oximeter Pulse Oximetry (%) 95 95 Oxygen Delivery Method Room Air Room Air Comment Pre-Op Post Op Intake Visit Reasons: therapetic b/l MBB C4- C5- C6 MBB Allergies No Known Allergies Allergy (Verified 05/24/23 11:11) PFSH Medical History Anxiety Asthma Chronic post-traumatic stress disorder Long-term current use of anxiolytic medication Nonintractable headache Paresthesias Social History Alcohol intake: current Alcohol intake frequency: holidays/special occasions only Patient Tobacco Use Status: Former Tobacco user Physical Exam Vital Signs: Last Vital Signs Pulse 77 07/06/23 10:20 Resp 16 07/06/23 10:20 BP 132/82 07/06/23 10:20 Pulse Ox 95 07/06/23 10:20 Oxygen Delivery Method Room Air 07/06/23 10:20 BMI result Body Mass Index 28.9 Assessment & Plan Assessment & Plan (1) Spondylosis of cervical spine with radiculopathy: Code(s): M47.22 - Other spondylosis with radiculopathy, cervical region Plan: Bilateral C4-C4- C6 therapeutic medial branch block. ?Informed consent was explained to the patient. All questions were explained and answered.? The patient was taken inside the operating room where she was positioned prone on the operating table. Time-out was performed delineating correct site, side, the nature of the procedure, patient's allergy, preoperative antibiotic if needed.? All operating room staff was participating in OR time-out procedure. The back of the neck and upper back were prepped with ChloraPrep and draped with sterile towels.? Sterilely draped C-arm was brought over the operating field and sq picture of? C4-C5-C6 vertebrae were delineated on the screen.? Points of interest were delineated as lateral masses bilaterally of the vertebrae as above. The waste of each lateral mass was chosen as the target of the tip of the needles on AP view and lateral view was used as a safety view for the tips of the needles position.?? The projections of the point of interest to the skin were injected with the small amount of local anesthetic lidocaine 2% 1-1.5 cc.? After that 22 gauge 3 and 1/2 inch? spinal needles were driven to the point of interest in tunnel vision fashion. After needles gently contacted the bone at the point of interests, lateral views were obtained demonstrating the positions of the needles away from the foraminas, the c-arm was returned to AP view and the needles was injected with small amount of the contrast. The injections did not demonstrate intravascular or intrathecal spread. After that ropivacaine 0.5%-1cc. mixed with kenalog was injected into each location of the needles. ( total dose of Kenalog was 80 mgs).? Upon completion of the injections the needles were removed and sterile dressings were applied, the patient was a taken? outside of the operating room to recovery room where she recovered uneventfully. (2) Lateral epicondylitis: Code(s): M77.10 - Lateral epicondylitis, unspecified elbow (3) Medial epicondylitis of right elbow: Code(s): M77.01 - Medial epicondylitis, right elbow Plan EMG is a negative for radiculopathy, it is also negative for peripheral neuropathy including carpal tunnel neuropathy. She attracted my attention to her elbow where the most of the pain she experiences to. She reports pain in both lateral and medial epicondyle. With diagnosis of go for elbow versus tennis elbow all send her to Dr. Purvis for consult. She does not want to do neck injections however medial branch blocks could be offered to her to attempt to treat her pain C4-C5 C6 bilateral or on the right if she prefers to treat right-sided pain. Will start her on tizanidine 4 mg b.i.d.. If she will feel drowsy or dizzy on the medication I allowed her to take 1 and 1/2 pill at night and half a pill during the lunch time. ? Orders: Orders FL guidance in treatment room 07/06/23 M47.22 - Other spondylosis with radiculopathy, cervical region Coding Level of Care Code Procedure Only Diagnoses Spondylosis of cervical spine with radiculopathy M47.22 Lateral epicondylitis M77.10 Medial epicondylitis of right elbow M77.01
[2023-07-06 10:20] VITALS: BP 132/82; PULSE 77; RESP 16; O2SAT 95; BMI 28.9
== END 2023-07-06 10:02 | disposition home or self-care (01) ==
LOC: HO.PMCPRC 08:39
PROVIDERS: Visit Provider Anesthesiology
DX: M47.892 Other spondylosis, cervical region (principal)
CPT/HCPCS: 64490; 64491

== ENCOUNTER 2023-08-16 14:14 | Outpatient (AMB) | payer OTHER, SELFPAY ==
--- NOTE | 2023-08-16 14:16 | MHC.OFFVIS ---
Intake Vital Signs 08/16/23 14:32 Height 5 ft 3 in Weight 155 lb 6 oz BMI 27.5 BP 128/76 Blood Pressure Location Lt brachial Position Sitting Respiration 18 Pulse 92 Pulse Source Pulse Oximeter Pulse Oximetry (%) 96 Oxygen Delivery Method Room Air Intake Visit Reasons: therapetic b/l MBB C4- C5- C6 MBB 07/06/23/lvm Allergies No Known Allergies Allergy (Verified 08/16/23 14:32) HPI HPI Comments History of Present Illness Details Chio in my office today after therapeutic bilateral medial branch block C4-C5 C6 which was performed on July 06 2023. She reported no pain improvement from this injection short of the few days immediately after the procedure. Before that she received epidural steroid injection also with no significant results. She starts to complains on widespread burning sensation throughout the body. That might be a sign of patient developing fibromyalgia. We agreed that I will start her on gabapentin 300 mg t.i.d.. She previously was on gabapentin and this did not result in any side effects. She does not remember any improvements of her condition being on gabapentin but to the does was only 300 mg a day. She also started to complain on pain in the posterior pelvis on the right. The physical exam is as below. I believe she developed sacroiliac joint problem. She reports to this pain is a sciatica. However the radiation of the pain is not all the way down to her toes in that stops above the ankle. I offered her diagnostic sacroiliac joint injection on the right. This will be scheduled without sedation. As of her cervicalgia cervical pain I offered her to read brochure about spinal cord stimulator Wendie. Her pain in the neck is mostly axial. In the attempt to cover more painful areas in her upper cervical pt midcervical spine and may be even upper thoracic spine we may try to stagger bilateral electrodes further out. She appears to be interested in the procedure. She needs to go for psychological evaluation. To make sure that there is no significant side effects or complications from the steroid injection I will send her for basic metabolic panel. Blood fasting blood glucose should be done with this lab. She reported that she is going to see Dr. Purvis about her elbow problems it looks like that she has tennis elbow and possibly even golfer elbow as well. Prior: She received 2 years ago interlaminar C7-T1 epidural steroid injection with no improvement of her pain. She reports significant pain in the back of the neck with radiation into the back of the head on top of the head and sometimes in the front hand in the frontal area. She also reports pain in lower portion of the neck with radiation into the lower shoulder as well as sensation of tingling numbness and pain in the right hand. Last time I found Phalen test and the reverse Phalen tests are positive for carpal tunnel on the right. So it was a confusing situation and I sent her for EMG. EMG came back normal without signs of peripheral or radicular neuropathy. She attracted my attention today to the pain at the lateral and medial epicondyles of the right elbow. So she might be suffering from tennis versus golfer elbow. I will send her to Dr. Purvis for evaluation. We agreed that she will start tizanidine 4 mg b.i.d. In the past I offered this patient2. injections 1 month apart. First injection should be bilateral C2-C3 C4 medial branch block diagnostic. In 1 month from that injection will perform right-sided C4-C5 C6 medial branch block also diagnostic. At this time patient wants to concentrate everything on her elbow pain. [facility] Medical History Anxiety Asthma Chronic post-traumatic stress disorder Long-term current use of anxiolytic medication Nonintractable headache Paresthesias Social History Alcohol intake: current Alcohol intake frequency: holidays/special occasions only Patient Tobacco Use Status: Former Tobacco user Review of Systems Const All systems reviewed & are unremarkable except as noted in HPI and below Eyes Denies photophobia ENT Reports Normal hearing present Neuro Reports Normal hearing present Physical Exam Vital Signs: Last Vital Signs Pulse 92 08/16/23 14:32 Resp 18 08/16/23 14:32 BP 128/76 08/16/23 14:32 Pulse Ox 96 08/16/23 14:32 Oxygen Delivery Method Room Air 08/16/23 14:32 BMI result Body Mass Index 27.5 Const General: cooperative, healthy appearing, no acute distress and alert Orientation/consciousness: patient oriented x3 Limitations: No ambulation with cane, No ambulation with walker and No wheelchair HEENT Head: Yes normal to inspection, Yes normocephalic and Yes atraumatic Ears: hearing grossly normal bilaterally Eyes General: appearance normal, both eyes and all related structures Eyelids: Yes eyelids normal Sclerae: sclerae normal Pupils: Equal, round and reactive pupils present EOM: EOMs intact bilaterally Direct Ophthalmoscopy: No photophobia Neck Neck: Yes normal visual inspection, Yes full ROM, Yes trachea midline and Yes no JVD Chest Chest palpation & inspection: normal inspection of the chest Resp Effort & Inspection: normal respiratory effort, able to speak in complete sentences and no audible wheezes Cardio Jugular venous distension: no JVD Palpation: other (no appreciable rhythmic abnormalities) Peripheral pulses: radial pulses present (no palpable rhythmic abnormalities detected) bilateral and other Back/Spine/Pelvis Other: Patient with decreased ROM in all planes. Most discomfort caused by cervical extension. Spurling compression test + bilaterally. Elvey's tension test positive. Pain is unaffected with Spurling manuever with retraction. Elvey's tension test positive on bilaterally, with radiation of pain from neck to wrist. Lhermitte's test negative. Patient demonstrated 5/5 motor strength of bilateral upper extremities. DTRs intact and symmetrical. 2+ radial pulses. Gerald test, pelvis destruction test, pelvic compression test, and Gaenslen test, all positive on the right. Cervical Spine: cervical ROM normal, pain with cervical ROM and Cervical spine tenderness Neuro General: patient oriented x3, gait normal, moves all extremities and Normal light touch and pain sensation Cranial nerves: Yes Equal, round and reactive pupils present and Yes Normal hearing present Cognition (Neuro): normal cognition Gait exam (Neuro): Normal gait present Motor exam (neuro): 5/5 motor strength present throughout Extrem Other: Phalen test and reverse Phalen tests are positive for carpal tunnel on the right. General: Yes normal to inspection, Yes full ROM and Yes no pedal edema Psych Appearance: grossly normal Speech and movement: Normal speech and movement present and Clear speech present Affect: normal affect Attitude: cooperative Thought process: Normal thought process present Thought content: Normal thought content present Insight: Good insight present (Psych) Judgement: Good judgement present (Psych) Assessment & Plan Assessment & Plan (1) Spondylosis of cervical spine with radiculopathy: Code(s): M47.22 - Other spondylosis with radiculopathy, cervical region (2) Lateral epicondylitis: Code(s): M77.10 - Lateral epicondylitis, unspecified elbow (3) Medial epicondylitis of right elbow: Code(s): M77.01 - Medial epicondylitis, right elbow (4) Chronic pain syndrome: Code(s): G89.4 - Chronic pain syndrome (5) Sacroiliitis: Code(s): M46.1 - Sacroiliitis, not elsewhere classified (6) Sacroiliac joint dysfunction of right side: Code(s): M53.3 - Sacrococcygeal disorders, not elsewhere classified Plan EMG is a negative for radiculopathy, it is also negative for peripheral neuropathy including carpal tunnel neuropathy. She is going to see Dr. Purvis for her epicondylitis very soon. BMP will be scheduled because she reports burning sensation all over the body after steroid injection in the neck. I will start her on gabapentin 300 mg t.i.d.. I will schedule her for sacroiliac joint injections on the right diagnostic. As of her neck pain I offered her Nevro SCS. To cover more of her pain I may try to stagger electrodes with Nevro SCS. She needs to go for psychological evaluation. ? Orders: Orders Basic Metabolic Panel Today G89.4 - Chronic pain syndrome Medications: New gabapentin 300 mg PO TID 30 days 90 caps 6RF Patient Instructions: I here by testify that I spent 34 minutes in conversation with this patient as well as in physical examination as well as evaluating her records and planning her care. Coding Level of Care Code Est Pt Level 4 (29167) Diagnoses Spondylosis of cervical spine with radiculopathy M47.22 Lateral epicondylitis M77.10 Medial epicondylitis of right elbow M77.01 Chronic pain syndrome G89.4 Sacroiliitis M46.1 Sacroiliac joint dysfunction of right side M53.3
[2023-08-16 14:32] VITALS: BP 128/76; PULSE 92; RESP 18; O2SAT 96; BMI 27.5
== END 2023-08-16 14:53 | disposition home or self-care (01) ==
PROVIDERS: Visit Provider Anesthesiology
DX: G89.4 Chronic pain syndrome (principal); M47.22 Other spondylosis with radiculopathy, cervical region; M77.10 Lateral epicondylitis, unspecified elbow; M77.01 Medial epicondylitis, right elbow; M46.1 Sacroiliitis, not elsewhere classified; M53.3 Sacrococcygeal disorders, not elsewhere classified
CPT/HCPCS: 99214

== ENCOUNTER 2023-08-16 14:14 | Outpatient (REF) | payer OTHER, SELFPAY ==
[2023-08-16 15:57] LABS: Anion Gap 7 (12-20); Blood Urea Nitrogen 17 mg/dL (9-16); Calcium 9.3 mg/dL (8.4-10.2); Carbon Dioxide 29 mmol/L (22-29); Chloride 109 mmol/L (96-108); Estimated Glomerular Filt Rate > 60; Glucose Random 81 mg/dL (60-115); Potassium 4.1 mmol/L (3.3-5.1); Sodium 141 mmol/L (135-145)
== END 2023-08-16 14:15 | disposition home or self-care (01) ==
LOC: HO.LAB 14:14
PROVIDERS: Visit Provider Anesthesiology
DX: M47.22 Other spondylosis with radiculopathy, cervical region (principal); M77.10 Lateral epicondylitis, unspecified elbow; M77.01 Medial epicondylitis, right elbow; G89.4 Chronic pain syndrome; M46.1 Sacroiliitis, not elsewhere classified; M53.3 Sacrococcygeal disorders, not elsewhere classified
CPT/HCPCS: 36415; 80048; 99212

== ENCOUNTER 2023-11-10 13:55 | Emergency (ER) | payer OTHER, SELFPAY ==
[2023-11-10 13:59] VITALS: BP 151/58; PULSE 89; RESP 18; TEMP 36.6; O2SAT 98; BMI 24.8
--- NOTE | 2023-11-10 14:01 | ED.DENTAL ---
HPI - Dental/Oral General Chief complaint: Dental/Oral Stated complaint: Dental Pain Broken Tooth Time Seen by Provider: 11/10/23 14:00 Source: patient Mode of arrival: ambulatory Limitations: no limitations History of Present Illness HPI Narrative: Patient is a 43-year-old female presenting to the ED with complaint of right upper jaw dental pain for the past 2-3 weeks. Reports that she broke a tooth which previously had a filling. Has been taking 800mg ibuprofen and 1,000mg Tylenol every 6 hours for the pain. States the pain is causing her to have more migraines than normal. States the area tastes bad. Denies any sore throat or difficulty swallowing. MD Complaint: tooth pain Location: Tooth # (2) Onset (ago): week(s) Duration: worsening Severity: severe Severity scale (1-10): 9 Relieving factors: nothing Exacerbating factors: chewing Context: history of dental caries and poor dental care Treatment prior to arrival: oral analgesic Related Data Previous Rx's Medication Instructions Recorded albuterol sulfate 2.5 mg/3 mL 2.5 mg (3 mL) inhalation Q4-6H PRN 06/08/22 (0.083 %) solution for nebulization shortness of breath or wheezing #75 mL albuterol sulfate 90 mcg/actuation 2 puff inhalation Q4-6H PRN 06/08/22 aerosol inhaler shortness of breath or wheezing #8.5 grams fluticasone propionate 45 2 puff inhalation BID #8 grams 06/08/22 mcg-salmeterol 21 mcg/actuation HFA inhaler (Advair HFA) lidocaine 5 % topical patch 1 patch topical DAILY PRN pain #15 08/11/22 ea tizanidine 4 mg tablet 4 mg PO BID PRN for muscle spasm 05/25/23 30 days #60 tabs gabapentin 300 mg capsule 300 mg PO TID 30 days #90 caps 08/16/23 amoxicillin 875 mg-potassium 1 tab PO Q12H #14 tabs 11/10/23 clavulanate 125 mg tablet oxycodone 5 mg tablet 5 mg PO Q6H PRN severe pain (scale 11/10/23 score 7-10) #8 tabs Allergies Allergy/AdvReac Type Severity Reaction Status Date / Time No Known Allergies Allergy Verified 11/10/23 13:59 Review of Systems Review of Systems: As per HPI. Yes all other systems are reviewed and are negative Constitutional: Constitutional: Reports as per HPI [facility] Past Medical History Medical History Anxiety Asthma Chronic post-traumatic stress disorder Long-term current use of anxiolytic medication Nonintractable headache Paresthesias Social History Social History Alcohol intake: current Alcohol intake frequency: holidays/special occasions only Patient Tobacco Use Status: Former Tobacco user Physical Exam Vital Signs: Vital Signs: Vital signs have been reviewed and appear to be correct. Blood pressure elevated. Heart rate normal. Respiratory rate normal. Temperature normal. Oxygen saturation normal. Const: General: cooperative, healthy appearing and no acute distress Orientation/consciousness: oriented to person, oriented to place, oriented to time and patient oriented x3 Limitations: no limitations HEENT: Head: Yes normocephalic and Yes atraumatic Ears: external ears normal General nose exam: Normal external nose present Face and sinus: Yes face symmetric Mouth: oropharynx normal and moist mucous membranes Teeth and gingiva: abnormal tooth and associated gingiva (tooth fractured) upper right second molar tender and with associated gingival edema; without associated gingival fluctuance Throat: Yes uvula midline Eyes: Pupils: Equal, round and reactive pupils present Neck: Neck: Yes normal visual inspection and Yes supple Resp: Effort & Inspection: normal respiratory effort and able to speak in complete sentences Auscultation: clear to auscultation bilaterally Cardio: Rate: regular rate Rhythm: regular rhythm Heart sounds: S1 normal heart sound present and S2 normal heart sound present GI: Palpation (GI): Soft to palpation and nontender Auscultation: normoactive bowel sounds : General: Yes no CVA tenderness Back/Spine/Pelvis: Back: no CVA tenderness Skin: General skin exam: elasticity normal and turgor normal Neuro: General: oriented to person, oriented to place, oriented to time, patient oriented x3, moves all extremities, no focal motor deficits and CN's II-XI intact bilaterally Cranial nerves: Yes Equal, round and reactive pupils present Cognition (Neuro): normal cognition Extrem: General: Yes full ROM, Yes no pedal edema and Yes no calf tenderness Psych: Mental Status: mental status grossly normal Affect: normal affect Thought process: Normal thought process present Medical Decision Making Medical Decision Making [facility] Narrative: Patient is a 43-year-old female presenting to the ED with complaint of right upper jaw dental pain for the past 2-3 weeks. On exam patient is awake, A+Ox3, BP mildly elevated likely due to pain, VS WNL, afebrile, normal neurological exam without focal deficits, physical exam findings as above. Given reported symptoms and physical exam findings, initial differential includes dental infection, dental abscess, dental carries. Will treat patient with course of Augmentin and 2 day course of oxycodone for severe pain. Patient provided with list of dental clinics and instructed to follow up [facility]. Return precautions discussed. Patient verbalized understanding of and agreement with plan. Differential Diagnosis Differential Diagnoses: The differential diagnosis associated with the presentation includes As per MDM. External Record Review External record reviewed: Inpatient record, Office record and Outpatient record Prescription Management I considered prescription management with: Pain Medication and Antibiotic Discharge Plan Discharge Clinical Impression: Dental infection, Dental caries Patient Disposition: Home, Self-Care Additional Instructions: You were evaluated in the emergency department today for complaint of dental pain. You are being treated for a dental infection with antibiotics. Please complete the full course of antibiotics as prescribed even if your symptoms improve. You can continue to alternate Tylneol and ibuprofen, but it is very important that you do not take more than the recommended amounts of these medications. You are being prescribed oxycodone for severe pain. IT IS IMPORTANT THAT YOU FOLLOW UP WITH YOUR A DENTIST SOON POSSIBLE. Please use the list of resources provided to schedule and appointment. Return to the emergency department if you develop worsening pain, swelling, difficulty swallowing, difficulty breathing, fever, or any other concerning symptoms. Prescriptions: New amoxicillin-pot clavulanate 875-125 mg tablet 1 tab PO Q12H Qty: 14 0RF oxycodone 5 mg tablet 5 mg PO Q6H PRN (Reason: severe pain (scale score 7-10)) Qty: 8 0RF Rx Instructions: Partial Fill upon patient request. No Action albuterol sulfate 2.5 mg /3 mL (0.083 %) solution for nebulization 2.5 mg inhalation Q4-6H PRN (Reason: shortness of breath or wheezing) Qty: 75 0RF albuterol sulfate 90 mcg/actuation HFA aerosol inhaler 2 puff inhalation Q4-6H PRN (Reason: shortness of breath or wheezing) Qty: 8.5 1RF Advair HFA 45-21 mcg/actuation HFA aerosol inhaler 2 puff inhalation BID Qty: 8 0RF Rx Instructions: administer with spacer lidocaine 5 % adhesive patch,medicated 1 patch topical DAILY PRN (Reason: pain) Qty: 15 0RF Rx Instructions: leave on most painful area for up to 12 hrs tizanidine 4 mg tablet 4 mg PO BID PRN (Reason: for muscle spasm) 30 Days Qty: 60 8RF gabapentin 300 mg capsule 300 mg PO TID 30 Days Qty: 90 6RF
== END 2023-11-10 14:17 | disposition home or self-care (01) ==
PROVIDERS: Emergency Provider Emergency Medicine
DX: K04.7 Periapical abscess without sinus (principal); K02.9 Dental caries, unspecified; J45.909 Unspecified asthma, uncomplicated
CPT/HCPCS: 99282

== ENCOUNTER 2024-05-22 16:31 | Emergency (ER) | payer OTHER, SELFPAY ==
[2024-05-22 17:03] VITALS: BP 150/95; PULSE 110; RESP 18; TEMP 37.2; O2SAT 100; BMI 23.3
--- NOTE | 2024-05-22 17:03 | ED.GENADULT ---
HPI - General Adult General Chief complaint: Dental/Oral Stated complaint: dental, mouth pain surgery 05/17 Time Seen by Provider: 05/22/24 18:07 Source: patient Mode of arrival: ambulatory Limitations: no limitations History of Present Illness HPI narrative: Patient is a 43 old female presenting for evaluation of dental pain. She reports approximately 3 weeks ago she had a right upper molar extracted 05/17/2024 she had an additional molar extracted and an alveoplasty to the prior extraction. She states she was not recently discharged with oral antibiotics as she had completed 3 courses prior to this. She reports she has been alternating between Tylenol and ibuprofen and using chlorhexidine mouthwash as prescribed without any relief of her pain. She states at the time of the 1st extraction she was given a prescription for Percocet which helped her pain. She denies any associated fevers chills. Denies any foul taste in the mouth or pus-like drainage. She attempted to call her dental surgeon today but did not receive a call back. Related Data Previous Rx's ?Medication ?Instructions ?Recorded albuterol sulfate 2.5 mg/3 mL 2.5 mg (3 mL) inhalation Q4-6H PRN 06/08/22 (0.083 %) solution for nebulization shortness of breath or wheezing #75 mL albuterol sulfate 90 mcg/actuation 2 puff inhalation Q4-6H PRN 06/08/22 aerosol inhaler shortness of breath or wheezing #8.5 grams fluticasone propionate 45 2 puff inhalation BID #8 grams 06/08/22 mcg-salmeterol 21 mcg/actuation HFA inhaler (Advair HFA) lidocaine 5 % topical patch 1 patch topical DAILY PRN pain #15 08/11/22 ea gabapentin 300 mg capsule 300 mg PO TID 30 days #90 caps 08/16/23 amoxicillin 875 mg-potassium 1 tab PO Q12H #14 tabs 11/10/23 clavulanate 125 mg tablet oxycodone 5 mg tablet 5 mg PO Q6H PRN severe pain (scale 11/10/23 score 7-10) #8 tabs tizanidine 4 mg tablet 4 mg PO BID PRN for muscle spasm 04/21/24 30 days #60 tabs acetaminophen 300 mg-codeine 15 mg 1 tab PO Q6H PRN pain #7 tabs 05/22/24 tablet Allergies Allergy/AdvReac Type Severity Reaction Status Date / Time No Known Allergies Allergy Verified 05/22/24 17:07 Review of Systems Review of Systems: Yes all other systems are reviewed and are negative [facility] Past Medical History Attestation statement: The following information was validated with the patient. Source: old records reviewed Medical History Asthma Anxiety Paresthesias Chronic post-traumatic stress disorder Long-term current use of anxiolytic medication Nonintractable headache Social History Social History Alcohol intake: current Alcohol intake frequency: holidays/special occasions only Patient Tobacco Use Status: Former Tobacco user Advance Directives: No Advance Directives Information Provided: No Do you have a plan to hurt others: No Plan Physical Exam ED Vital Signs: Vital Signs - 24 hr 05/22/24 17:03 Temperature 98.9 F Pulse Rate 110 H Respiratory Rate 18 Blood Pressure 150/95 H Pulse Oximetry 100 Oxygen Delivery Method Room Air BMI result Body Mass Index 23.3 Appearance: Alert.?Oriented to person, place and time. No acute distress.?Normal affect. Eyes: Pupils equal, round and reactive to light.? ENT: Pharynx normal.??Gingiva in the right upper molar region without erythema, fluctuance, pus-like drainage. No alveolar visibility. No active drainage. No surrounding inflammation to the buccal tissue. Neck: Normal inspection.? Neck supple.??No cervical adenopathy CVS: Heart sounds normal. Normal heart rate and rhythm.? Pulses normal.?? Respiratory: No respiratory distress.? Lung sounds clear to auscultation bilaterally?? Abdomen: Soft and non-tender. Normoactive bowel sounds. Skin: Skin warm and dry.? Normal skin color.? Extremities: No lower extremity edema.? Neuro: Moves all extremities spontaneously. Sensation intact bilaterally. Ambulates with normal steady gait. Medical Decision Making Medical Decision Making MDM Narrative: Patient is a 43 year old female who presents emergency department for evaluation of right upper dental pain as per HPI. Overall she is well-appearing, nontoxic, afebrile. She has mild tachycardia though I think this is secondary to pain. On examination there was no erythema, areas of fluctuance, or areas of exposed alveolar bone. Serum labs are without leukocytosis or thrombocytopenia. No electrolyte derangements or WOLF. No signs of Demario's angina, history and physical examination not consistent with RPA. At this time I feel that she is stable for discharge, outpatient follow-up with her dental provider, discussed worrisome signs and symptoms that would warrant re-evaluation emergency department. Differential Diagnosis Differential Diagnoses: The differential diagnosis associated with the presentation includes (Alveolar osteititis, dental abscess, oralfacial space infection) Admission/Observation Consideration of admission/observation: Escalation of care including admission/observation considered (See narrative above) Lab Data MDM Lab Attestation statement: I reviewed the patient's lab results. (See narrative above) 05/22/24 17:18 05/22/24 17:18 Labs: Lab Results 05/22/24 Range/Units 17:18 WBC 7.0 (4.8-10.8) X10*3/uL RBC 4.05 L (4.20-5.50) X10*6/uL Hgb 12.5 (12.0-16.0) g/dl Hct 36.5 L (37.0-47.0) % MCV 90.1 (80.0-98.0) fL MCH 30.9 (27.0-33.0) pg MCHC 34.2 (31.0-35.0) g/dl RDW 12.9 (11.0-16.0) % Plt Count 272 (160-400) X10*3/uL MPV 9.8 (9.4-12.3) fL Immature Gran % (Auto) 0.3 (0.0-0.4) % Neut % (Auto) 69.4 (45-73) % Lymph % (Auto) 19.0 L (20-40) % D[place]y % (Auto) 7.7 (2-11) % Eos % (Auto) 3.0 (0-4) % Baso % (Auto) 0.6 (0-2) % Lymph # (Auto) 1.3 (1.2-4.9) X10*3/uL [place]y # (Auto) 0.5 (0.1-1.2) X10*3/uL Eos # (Auto) 0.2 (0.0-0.4) X10*3/uL Baso # (Auto) 0.0 (0.0-0.2) X10*3/uL Abs Immat Gran (auto) 0.02 (0.00-0.03) X10*3/uL Absolute Neuts (auto) 4.9 (2.0-8.3) x10*3/uL Absolute Nucleated RBC 0.000 (0.0-0.012) X10*3/uL Nucleated RBC % (auto) 0.0 (0.0-0.2) /100WBC Sodium 143 (135-145) mmol/L Potassium 4.0 (3.3-5.1) mmol/L Chloride 111 H (96-108) mmol/L Carbon Dioxide 24 (22-29) mmol/L Anion Gap 12 (12-20) BUN 7 L (9-16) mg/dL Creatinine 0.69 (0.5-1.4) mg/dL Estim Creat Clear Calc 93.6 Estimated GFR > 60 Random Glucose 86 (60-115) mg/dL Calcium 9.2 (8.4-10.2) mg/dL Total Bilirubin 0.4 (0.0-1.0) mg/dL AST 26 (5-31) U/L ALT 30 (0-31) U/L Alkaline Phosphatase 64 (39-117) U/L Total Protein 6.5 (6.5-8.0) g/dL Albumin 4.3 (3.5-5.0) g/dL External Record Review External record reviewed: Outpatient record and Other ([employer] reviewed) Prescription Management I considered prescription management with: Pain Medication Discharge Plan Discharge Clinical Impression: Pain, dental Patient Disposition: Home, Self-Care Additional Instructions: You can take ibuprofen 200 mg, 3 tablets (600mg) every 6-8 hours as needed for pain Continue using chlorhexidine mouthwash. For pain unrelieved by the above I have sent a prescription for oxycodone to your pharmacy, this is a narcotic medication and it may be addictive. You should not drive, drink alcohol, or work while taking this medication. Please only use this for severe pain. It is very important that you contact your dental provider tomorrow to arrange for appropriate follow-up. If you develop pus-like drainage, redness or swelling, fevers or chills, chest pain or shortness of breath and this would warrant re-evaluation sooner. Prescriptions: New acetaminophen-codeine 300-15 mg tablet 1 tab PO Q6H PRN (Reason: pain) Qty: 7 0RF No Action tizanidine 4 mg tablet 4 mg PO BID PRN (Reason: for muscle spasm) 30 Days Qty: 60 8RF albuterol sulfate 2.5 mg /3 mL (0.083 %) solution for nebulization 2.5 mg inhalation Q4-6H PRN (Reason: shortness of breath or wheezing) Qty: 75 0RF albuterol sulfate 90 mcg/actuation HFA aerosol inhaler 2 puff inhalation Q4-6H PRN (Reason: shortness of breath or wheezing) Qty: 8.5 1RF Advair HFA 45-21 mcg/actuation HFA aerosol inhaler 2 puff inhalation BID Qty: 8 0RF Rx Instructions: administer with spacer lidocaine 5 % adhesive patch,medicated 1 patch topical DAILY PRN (Reason: pain) Qty: 15 0RF Rx Instructions: leave on most painful area for up to 12 hrs amoxicillin-pot clavulanate 875-125 mg tablet 1 tab PO Q12H Qty: 14 0RF oxycodone 5 mg tablet 5 mg PO Q6H PRN (Reason: severe pain (scale score 7-10)) Qty: 8 0RF Rx Instructions: Partial Fill upon patient request. gabapentin 300 mg capsule 300 mg PO TID 30 Days Qty: 90 6RF Referrals: Physician,None [Primary Care Provider] - Discharge Date/Time: 05/22/24 19:16 Print Language: Japanese
[2024-05-22 17:26] LABS: MANUAL DIFF FLAG NO
[2024-05-22 17:28] LABS: Basophils Percent Auto 0.6 % (0-2); Eosinophils Absolute Auto 0.2 X10*3/uL (0.0-0.4); Hematocrit 36.5 % (37.0-47.0); Hemoglobin 12.5 g/dl (12.0-16.0); Imm Gran Abs Auto 0.02 X10*3/uL (0.00-0.03); Imm Gran Pct Auto 0.3 % (0.0-0.4); Lymphocytes Absolute Auto 1.3 X10*3/uL (1.2-4.9); Mean Corpuscular HGB Conc 34.2 g/dl (31.0-35.0); Mean Corpuscular Hemoglobin 30.9 pg (27.0-33.0); Mean Corpuscular Volume 90.1 fL (80.0-98.0); Mean Platelet Volume 9.8 fL (9.4-12.3); Monocytes Absolute Auto 0.5 X10*3/uL (0.1-1.2); Monocytes Percent Auto 7.7 % (2-11); Neutrophils Absolute Auto 4.9 x10*3/uL (2.0-8.3); Neutrophils Percent Auto 69.4 % (45-73); Platelet Count 272 X10*3/uL (160-400); Red Blood Count 4.05 X10*6/uL (4.20-5.50); Red Cell Distribution Width 12.9 % (11.0-16.0)
[2024-05-22 18:14] LABS: Alanine Aminotransferase 30 U/L (0-31); Albumin Level 4.3 g/dL (3.5-5.0); Alkaline Phosphatase 64 U/L (39-117); Anion Gap 12 (12-20); Aspartate Amino Transferase 26 U/L (5-31); Bilirubin Total 0.4 mg/dL (0.0-1.0); Blood Urea Nitrogen 7 mg/dL (9-16); Calcium 9.2 mg/dL (8.4-10.2); Carbon Dioxide 24 mmol/L (22-29); Chloride 111 mmol/L (96-108); Creatinine Clr Calc Pharmacy 93.6; Estimated Glomerular Filt Rate > 60; Glucose Random 86 mg/dL (60-115); Sodium 143 mmol/L (135-145); Total Protein 6.5 g/dL (6.5-8.0)
[2024-05-22 18:55] VITALS: BP 131/82; PULSE 71; RESP 14; TEMP 36.4; O2SAT 100
== END 2024-05-22 19:16 | disposition home or self-care (01) ==
PROVIDERS: Physician Assistant Medical; Emergency Provider Emergency Medicine
DX: K08.89 Other specified disorders of teeth and supporting structures (principal); Z79.899 Other long term (current) drug therapy
CPT/HCPCS: 36415; 80053; 85025; 99282; 99283

== ENCOUNTER 2024-06-28 14:19 | Outpatient (AMB) | payer OTHER, SELFPAY ==
--- NOTE | 2024-06-28 14:31 | A.OFFVIS_ITS ---
Vital Signs 06/28/24 14:36 Height 5 ft 5 in Weight 138 lb 4 oz BMI 23.0 BP 138/76 Blood Pressure Location Lt brachial Position Sitting Respiration 16 Pulse 68 Pulse Source Pulse Oximeter Pulse Oximetry (%) 100 Oxygen Delivery Method Room Air Intake Visit Reasons: FU pain coming back/new symptoms Intake Note: Patient comes in for follow up. Reports pain 02/20. Allergies No Known Allergies Allergy (Verified 06/28/24 14:37) HPI Comments Details: Chio is very pleasant 43 years old female who presents today in my office with complains of pain in the cervical spine coming back as well as widespread pain in the thoracic spine pain in the sacroiliac joint pain in the lower lumbar spine, mental fatigue, difficulty sleeping, overall weakness and bilateral lower extremities giving up under her. She was under my care about 1 year ago. She received therapeutic C7-T1 epidural steroid injection in cervical spine. She received also therapeutic medial branch block C4-C5 C6 bilateral. She reported that both injections made her feel worse. She adamantly refuses to go for any injections today. She was in the past tried on gabapentin and gabapentin caused severe memory loss. She stopped gabapentin and memory restored. I suspect if Geoffrey muhammad will be started on her it will be the same effect if not even worse. She recently learned that her father was diagnose with ankylosing spondylitis and she is interested to find out whether or not she has ankylosing spondylitis since it is inherited disease. She adamantly refuses to go for the injections. With diagnosis of ankylosing spondylitis she will be referred to Rheumatology. I suspect this patient is suffering from fibromyalgia. If no rheumatological conditions will be found on diagnostic studies she is welcome to come back and we will continue to treat her with fibromyalgia. I explained to her that [place] reliable and scientific proved treatment for fibromyalgia is low impact aerobic exercise. I recommended her to find the gym with a good swimming pool and swim in this gym at least once a day. She also can do elliptical machine or stationary bicycle as a substitute if she is not able to go to the gym every day. Ketamine oral briefly was described to the patient as the way to treat fibromyalgia, however for the patient risks are outweighing benefits. [facility] Medical History Asthma Anxiety Paresthesias Chronic post-traumatic stress disorder Long-term current use of anxiolytic medication Nonintractable headache Social History Alcohol intake: current Alcohol intake frequency: holidays/special occasions only Patient Tobacco Use Status: Former Tobacco user Review of Systems Const All systems reviewed & are unremarkable except as noted in HPI and below Eyes Denies photophobia ENT Reports Normal hearing present Neuro Reports Normal hearing present Physical Exam Vital Signs: Last Vital Signs Pulse 68 06/28/24 14:36 Resp 16 06/28/24 14:36 BP 138/76 06/28/24 14:36 Pulse Ox 100 06/28/24 14:36 Oxygen Delivery Method Room Air 06/28/24 14:36 BMI result Body Mass Index 23.0 Const General: cooperative, healthy appearing, no acute distress and alert Orientation/consciousness: patient oriented x3 Limitations: No ambulation with cane, No ambulation with walker and No wheelchair HEENT Head: Yes normal to inspection, Yes normocephalic and Yes atraumatic Ears: hearing grossly normal bilaterally Eyes General: appearance normal, both eyes and all related structures Eyelids: Yes eyelids normal Sclerae: sclerae normal Pupils: Equal, round and reactive pupils present EOM: EOMs intact bilaterally Direct Ophthalmoscopy: No photophobia Neck Neck: Yes normal visual inspection, Yes full ROM, Yes trachea midline and Yes no JVD Chest Chest palpation & inspection: normal inspection of the chest Resp Effort & Inspection: normal respiratory effort, able to speak in complete sentences and no audible wheezes Cardio Jugular venous distension: no JVD Palpation: other (no appreciable rhythmic abnormalities) Peripheral pulses: radial pulses present (no palpable rhythmic abnormalities detected) bilateral and other Back/Spine/Pelvis Other: Patient with decreased ROM in all planes. Most discomfort caused by cervical extension. Spurling compression test + bilaterally. Elvey's tension test positive. Pain is unaffected with Spurling manuever with retraction. Elvey's tension test positive on bilaterally, with radiation of pain from neck to wrist. Lhermitte's test negative. Patient demonstrated 5/5 motor strength of bilateral upper extremities. DTRs intact and symmetrical. 2+ radial pulses. Gerald test, pelvis destruction test, pelvic compression test, and Gaenslen test, all positive on the right. Cervical Spine: cervical ROM normal, pain with cervical ROM and Cervical spine tenderness Neuro General: patient oriented x3, gait normal, moves all extremities and Normal li ght touch and pain sensation Cranial nerves: Yes Equal, round and reactive pupils present and Yes Normal hearing present Cognition (Neuro): normal cognition Gait exam (Neuro): Normal gait present Motor exam (neuro): 5/5 motor strength present throughout Extrem Other: Phalen test and reverse Phalen tests are positive for carpal tunnel on the right. General: Yes normal to inspection, Yes full ROM and Yes no pedal edema Psych Appearance: grossly normal Speech and movement: Normal speech and movement present and Clear speech present Affect: normal affect Attitude: cooperative Thought process: Normal thought process present Thought content: Normal thought content present Insight: Good insight present (Psych) Judgement: Good judgement present (Psych) Assessment & Plan Assessment & Plan (1) Spondylosis of cervical spine with radiculopathy: Code(s): M47.22 - Other spondylosis with radiculopathy, cervical region Category: Medical (2) Lateral epicondylitis: Code(s): M77.10 - Lateral epicondylitis, unspecified elbow Category: Medical (3) Medial epicondylitis of right elbow: Code(s): M77.01 - Medial epicondylitis, right elbow Category: Medical (4) Chronic pain syndrome: Code(s): G89.4 - Chronic pain syndrome Category: Medical (5) Sacroiliitis: Code(s): M46.1 - Sacroiliitis, not elsewhere classified Category: Medical (6) Sacroiliac joint dysfunction of right side: Code(s): M53.3 - Sacrococcygeal disorders, not elsewhere classified Category: Medical (7) Ankylosing spondylitis: Code(s): M45.9 - Ankylosing spondylitis of unspecified sites in spine Category: Medical Plan EMG is a negative for radiculopathy, it is also negative for peripheral neuropathy including carpal tunnel neuropathy. She is going to see Dr. Purvis for her epicondylitis very soon. I offered this patient in the past injections, offered her spinal cord stimulator. Unfortunately the patient does not want to accept those modalities. She thinks that she is suffering from ankylosing spondylitis. Her father was diagnose with this condition. I will refer her with this diagnosis to rheumatology. However I suspect this patient has fibromyalgia if after rheumatological workup there will be no definitive rheumatological diagnosis she can not come back and we will try treatment with Savella. Low-impact aerobic exercise recommended for the patient to start right away. Gabapentin tried in the past and gave her severe memory loss. ? Orders: Referrals Rheumatology Referral M45.9 - Ankylosing spondylitis of unspecified sites in spine Patient Instructions: I here by testify that I spent 32 minutes in conversation with this patient as well as planning her care and organizing this note. Coding Level of Care Code Est Pt Level 4 (25704) Diagnoses Spondylosis of cervical spine with radiculopathy M47.22 Lateral epicondylitis M77.10 Medial epicondylitis of right elbow M77.01 Chronic pain syndrome G89.4 Sacroiliitis M46.1 Sacroiliac joint dysfunction of right side M53.3 Ankylosing spondylitis M45.9
[2024-06-28 14:36] VITALS: BP 138/76; PULSE 68; RESP 16; O2SAT 100; BMI 23.0
== END 2024-06-28 14:54 | disposition home or self-care (01) ==
PROVIDERS: Visit Provider Anesthesiology
DX: M47.22 Other spondylosis with radiculopathy, cervical region (principal); M77.10 Lateral epicondylitis, unspecified elbow; M77.01 Medial epicondylitis, right elbow; G89.4 Chronic pain syndrome; M46.1 Sacroiliitis, not elsewhere classified; M53.3 Sacrococcygeal disorders, not elsewhere classified; M45.9 Ankylosing spondylitis of unspecified sites in spine
CPT/HCPCS: 99214

== ENCOUNTER → 2024-06-28 14:19 | Outpatient (BNVA) | payer OTHER, SELFPAY | PROVIDERS: Visit Provider Anesthesiology | DX: M47.22 Other spondylosis with radiculopathy, cervical region (principal); M77.10 Lateral epicondylitis, unspecified elbow; M77.01 Medial epicondylitis, right elbow; M46.1 Sacroiliitis, not elsewhere classified; M53.3 Sacrococcygeal disorders, not elsewhere classified; M45.9 Ankylosing spondylitis of unspecified sites in spine; G89.4 Chronic pain syndrome | CPT/HCPCS: 99212 ==

== ENCOUNTER 2024-09-12 09:54 | Outpatient (REF) | payer OTHER, SELFPAY ==
--- NOTE | ~2024-09-12 | XR_ITS ---
CLINICAL HISTORY: M79.7 - Fibromyalgia 6 views lumbar spine Comparison: None Findings: Normal vertebral body alignment. No acute fractures or dislocation. No significant degenerative change. IMPRESSION: No acute findings. This document has been electronically signed by: Pj Ellis MD on 09/14/2024 20:59:03
--- NOTE | ~2024-09-12 | XR_ITS ---
CLINICAL HISTORY: M45.9 - Ankylosing spondylitis of unspecified sites in spine 3 views sacroiliac joints Comparison: None Findings: No fractures or malalignment. Mild sclerosis of the sacroiliac joints anteriorly. No ankylosis. Bone mineralization and soft tissues within normal limits. No unusual radiopaque foreign bodies. Impression: 1. Mild sclerosis of the sacroiliac joints anteriorly fairly symmetric without ankylosis. This document has been electronically signed by: Sarbjit Doty MD on 09/14/2024 11:45:32
--- NOTE | ~2024-09-12 | XR_ITS ---
CLINICAL HISTORY: M79.7 - Fibromyalgia 3 views thoracic spine Comparison: None Findings: Normal alignment. No acute fractures or dislocation. No significant degenerative change. IMPRESSION: No acute findings. This document has been electronically signed by: Pj Ellis MD on 09/14/2024 20:59:43
[2024-09-12 11:49] LABS: MANUAL DIFF FLAG NO
[2024-09-12 13:03] LABS: Basophils Percent Auto 0.6 % (0-2); Eosinophils Absolute Auto 0.2 X10*3/uL (0.0-0.4); Eosinophils Percent Auto 3.4 % (0-4); Hematocrit 38.7 % (37.0-47.0); Hemoglobin 13.2 g/dl (12.0-16.0); Imm Gran Abs Auto 0.02 X10*3/uL (0.00-0.03); Imm Gran Pct Auto 0.3 % (0.0-0.4); Lymphocytes Absolute Auto 1.8 X10*3/uL (1.2-4.9); Lymphocytes Percent Auto 25.7 % (20-40); Mean Corpuscular HGB Conc 34.1 g/dl (31.0-35.0); Mean Corpuscular Hemoglobin 31.4 pg (27.0-33.0); Mean Corpuscular Volume 92.1 fL (80.0-98.0); Mean Platelet Volume 10.5 fL (9.4-12.3); Monocytes Absolute Auto 0.5 X10*3/uL (0.1-1.2); Monocytes Percent Auto 7.4 % (2-11); Neutrophils Absolute Auto 4.3 x10*3/uL (2.0-8.3); Neutrophils Percent Auto 62.6 % (45-73); Platelet Count 201 X10*3/uL (160-400); Red Cell Distribution Width 12.9 % (11.0-16.0); White Blood Count 6.9 X10*3/uL (4.8-10.8)
[2024-09-12 13:38] LABS: Alanine Aminotransferase 37 U/L (0-31); Albumin Level 4.3 g/dL (3.5-5.0); Alkaline Phosphatase 61 U/L (39-117); Anion Gap 11 (12-20); Aspartate Amino Transferase 28 U/L (5-31); Bilirubin Total 0.3 mg/dL (0.0-1.0); Blood Urea Nitrogen 15 mg/dL (9-16); C Reactive Protein < 0.10 mg/dL (< or = 0.50); Calcium 9.4 mg/dL (8.4-10.2); Carbon Dioxide 28 mmol/L (22-29); Chloride 106 mmol/L (96-108); Estimated Glomerular Filt Rate > 60; Glucose Random 81 mg/dL (60-115); Potassium 4.2 mmol/L (3.3-5.1); Sodium 141 mmol/L (135-145); Total Protein 6.6 g/dL (6.5-8.0)
[2024-09-12 13:39] LABS: Erythrocyte Sedimentation Rate 5 MM/HR (0-20)
[2024-09-12 13:52] LABS: Free T4 (Free Thyroxine) 0.99 ng/dL (0.71-1.85); Thyroid Stimulating Hormone 2.55 uIU/mL (0.32-4.0)
[2024-09-14 17:44] LABS: Thyroglobulin Antibodies <1 IU/mL (< or = 1); Thyroid Peroxidase Antibodies 1 IU/mL (<9)
[2024-09-14 20:33] LABS: Antibody to SS-A Antigen <1.0 NEG AI (<1.0 NEG); Antibody to SS-B Antigen <1.0 NEG AI (<1.0 NEG)
[2024-09-16 13:38] LABS: Vitamin D 25-OH, D2 <4 ng/mL; Vitamin D 25-OH, D3 53 ng/mL; Vitamin D 25-OH, Total 53 ng/mL (30-100)
[2024-09-16 21:33] LABS: HLA B27 Negative (Negative)
== END 2024-09-12 09:55 | disposition home or self-care (01) ==
LOC: HO.LAB 09:54
PROVIDERS: Visit Provider Student in an Organized Health Care Education/Training Program
DX: M45.9 Ankylosing spondylitis of unspecified sites in spine (principal); M79.7 Fibromyalgia; M54.9 Dorsalgia, unspecified; G89.29 Other chronic pain; Z79.899 Other long term (current) drug therapy
CPT/HCPCS: 36415; 72072; 72110; 72202; 80053; 82306; 84439; 84443; 85025; 85652; 86140; 86235; 86376; 86800; 86812; 99202

== ENCOUNTER 2024-09-12 09:54 | Outpatient (AMB) | payer OTHER, SELFPAY ==
[2024-09-12 09:57] VITALS: BP 128/86; PULSE 74; BMI 23.3
--- NOTE | 2024-09-12 09:57 | MHC.OFFVIS ---
Vital Signs 09/12/24 09:57 Height 5 ft 5 in Weight 140 lb 3.424 oz BMI 23.3 BP 128/86 Blood Pressure Location Rt brachial Position Sitting Pulse 74 Pulse Source Pulse Oximeter Intake Visit Reasons: Intake Note: New patient internally referred by Angel Pino, [facility] [place] Pain [facility]. Presents today for As. Location? Severe LB and B/L hip pain. Pain radiating down left leg down to toes. Weakness on hips and legs, sometimes legs give out on her. Sitting or standing for long period of time it makes pain worse. The center of her back feels bruised and painful. Migraines and stabbing pain on right side of face. Right shoulder pain radiating down to elbow. Nausea, fatigue and brain fog. Unable to catch breath and rib pain. Upset stomach and bumpy rash on arms. How long? This has been going on for years but it's progressively getting worse now. Rx used? Took Gabapentin but gave her bad brain fog. Correspondence Specialist Required: No Allergies No Known Allergies Allergy (Verified 06/28/24 14:37) Medication List - Last Reconciled 09/12/24 by Elysia Sierra MD albuterol sulfate 2.5 mg (3 mL) inhalation Q4-6H PRN albuterol sulfate 90 mcg/actuation 2 puffs inhalation Q4-6H PRN fluticasone propion-salmeterol 45-21 mcg/actuation (Advair HFA) 2 puffs inhalation BID lidocaine 5% 1 patch topical DAILY PRN tizanidine 4 mg PO BID PRN 30 days HPI Comments Details: Patient is a 44-year-old female presents today for evaluation of back pain. Has been going to pain management for neck pain since 2020 (prior to that was experiencing pain since 2015) Has had imaging of her C-spine which showed degenerative changes. Tried gabapentin - but this was associated with memory loss so this was stopped, tried injections but this was associated with a reaction. EMG negative for carpal tunnel Also complains of fatigue, even after getting a good night sleep With respect to her pain - worse in the evening - associated with stiffness that does not improve with activity (actually worsens with activity) - involves the whole spine: neck, mid and lower back Also has associated numbness and tingling involving both legs (L>R) Does report a rash on her arms and legs (mostly on the arms). Non pruritic. No inciting events No photosensitivity No history of IBD such as UC or Crohn's. No history of blood or mucus in stool No history of eye inflammation Dry eyes, but notes this was post Lasik surgery Also notes some dry mouth. Has a history of cavities Father with history of ankylosing spondylitis PFS Medical History Asthma Anxiety Paresthesias Chronic post-traumatic stress disorder Long-term current use of anxiolytic medication Nonintractable headache Social History Alcohol intake: current Alcohol intake frequency: holidays/special occasions only Patient Tobacco Use Status: Former Tobacco user Review of Systems Const Details: Review of Systems Constitutional: Denies fever, chills, weight loss ENT: Denies vision changes, eye pain or eye redness, dental caries, dry mouth GI: Denies nausea, vomiting, diarrhea, abdominal pain, change in BM Pulm: Denies SOB, PRINCE, hemoptysis, wheezing Cards: Denies chest pain, palpitations Skin: Denies Raynaud's, nail changes, photosensitivity, DIRECTOR OF GLOBAL TALENT: Denies headaches, weakness, paresthesias, recurrent falls MSK: as per HPI All other systems reviewed and are unremarkable except noted above Physical Exam Vital Signs: Last Vital Signs Pulse 74 09/12/24 09:57 BP 128/86 09/12/24 09:57 BMI result Body Mass Index 23.3 Physical Examination CONSTITUITIONAL Patient alert and cooperative. Well appearing and in no apparent painful distress HEENT Conjunctiva and sclera clear. ?Pupils equal round and reactive to light. ?No lymphadenopathy. ? CHEST/RESPIRATORY SYSTEM Normal respiratory effort and able to speak in complete sentences. ?Clear to auscultation bilaterally. ?No crackles, rales, rhonchi, wheezes heard. CARDIAC SYSTEM Regular rate and rhythm. ?S1 and S2 heard no murmurs. ?Radial pulses intact bilaterally MSK Hands: ?Good reproduction production manager strength bilaterally. No deformities noted. ?No synovitis noted to the MCPs, PIPs or DIPs. ?No tenderness to palpation of these joints. Wrists: ?Full range of motion at the wrists without pain. ?No tenderness to palpation or synovitis noted to the wrists. Elbows: Full range of motion without pain. No tenderness, weakness, swelling, increased warmth or erythema. Shoulders: Full range of motion without pain. No tenderness, weakness, swelling, increased warmth or erythema. Hips: Full range of motion without pain. Hip bursa: Tenderness to palpation Knees: ?Full range of motion. ?No tenderness, swelling, increased warmth or erythema.?No effusion or crepitations Ankles: Full range of motion. ?No tenderness, swelling, increased warmth or erythema.? Feet: ?Negative squeeze test. ?No tenderness to palpation or swelling of the MTPs. Tender points:?Tenderness to palpation of the bilateral trapezius, supraspinatus, greater trochanters, anterior costochondral junctions, bilateral gluteal areas, bilateral suboccipital muscle insertions Normal Schobers test SKIN faint red areas on forearm, but not significant Results Reviewed Results Reviewed: Laboratory Tests 05/22/24 17:18 WBC 7.0 RBC 4.05 L Hgb 12.5 Hct 36.5 L Plt Count 272 Sodium 143 Potassium 4.0 Chloride 111 H Carbon Dioxide 24 Anion Gap 12 BUN 7 L Creatinine 0.69 AST 26 ALT 30 Alkaline Phosphatase [address] C-Spine 2021 Cervical spine: There is anatomic alignment of the vertebral bodies and posterior elements. Vertebral body heights are maintained. There is mild disc space narrowing in the lower cervical spine with associated endplate osteophytes. No evidence of acute fracture. No prevertebral soft tissue swelling. EMG 04/2023 IMPRESSION: 1. This is normal study. 2. There is no electrodiagnostic evidence for median neuropathy, ulnar neuropathy, brachial plexopathy, or cervical radiculopathy. Assessment & Plan Assessment & Plan (1) Fibromyalgia: Code(s): M79.7 - Fibromyalgia Category: Medical Plan: #Fibromyalgia Patient with fibromyalgia based on widespread tender points, elevated widespread pain index and elevated somatic symptom scale This could be primary or secondary fibromyalgia. While the current evidence points to primary fibromyalgia I think due diligence requires me to rule out secondary causes. Some secondary causes in this patient could be Sjogren's, hypothyroidism, vitamin-D deficiency, seronegative spondyloarthritis She has tried gabapentin with adverse side effects. We will try duloxetine. She is also interested in trying another muscle relaxant We will check SI joints for any evidence of erosions. Patient is also requesting L-spine and T-spine films however I think this we will just showed degenerative changes Based on the exam I think her pain is mainly from fibromyalgia with significant muscle spasm involving her lower back. I do not find any evidence of synovitis on examination Plan - Start duloxetine 30mg daily for 4 months then reaccess - Stop tizanidine - Start Baclofen 5mg at night x 1 week then increase up to 3 times a day as tolerated - Check CBC, CMP, ESR, CRP, Sjogrens Ab, HLA B27, TSH, T4, TPO, Anti TG, Vit D - Check XR SI joints - XR L Spine and T spine at patient's request - RTC 4 weeks to review blood work and imaging Plan I spent 60 minutes reviewing the record and labs, seeing the patient, discussing the treatment plan and documenting in the medical record ? Orders: Orders Erythrocyte Sedimentation Rate Today M45.9 - Ankylosing spondylitis of unspecified sites in spine, M79.7 - Fibromyalgia Sjogren's Antibodies Today M45.9 - Ankylosing spondylitis of unspecified sites in spine, M79.7 - Fibromyalgia Thyroid Stimulating Hormone Today M45.9 - Ankylosing spondylitis of unspecified sites in spine, M79.7 - Fibromyalgia XR lumbar spine 4V min Today G89.29 - Other chronic pain, M54.9 - Dorsalgia, unspecified, M79.7 - Fibromyalgia Complete Blood Count Auto Diff Today M45.9 - Ankylosing spondylitis of unspecified sites in spine, M79.7 - Fibromyalgia Comprehensive Met. Panel Today M45.9 - Ankylosing spondylitis of unspecified sites in spine, M79.7 - Fibromyalgia C Reactive Protein Today M45.9 - Ankylosing spondylitis of unspecified sites in spine, M79.7 - Fibromyalgia Thyroid Peroxidase Antibodies Today M45.9 - Ankylosing spondylitis of unspecified sites in spine, M79.7 - Fibromyalgia Thyroglobulin Antibodies Today M45.9 - Ankylosing spondylitis of unspecified sites in spine, M79.7 - Fibromyalgia Free T4 (Free Thyroxine) Today M45.9 - Ankylosing spondylitis of unspecified sites in spine, M79.7 - Fibromyalgia Vitamin D 25-OH (D2 and D3) Today M45.9 - Ankylosing spondylitis of unspecified sites in spine, M79.7 - Fibromyalgia XR sacroiliac joint min 3V Today M45.9 - Ankylosing spondylitis of unspecified sites in spine, M79.7 - Fibromyalgia HLA B27 Today M45.9 - Ankylosing spondylitis of unspecified sites in spine, M79.7 - Fibromyalgia XR thoracic spine 3V Today G89.29 - Other chronic pain, M54.9 - Dorsalgia, unspecified, M79.7 - Fibromyalgia Medications: New baclofen Start with 1 tablet at night for 1 week and then increase to 2-3 times a day as tolerated 5 mg PO TID 90 days 270 tabs 1RF M79.7 - Fibromyalgia duloxetine 30 mg PO DAILY 90 caps 1RF M79.7 - Fibromyalgia Refilled lidocaine 5% leave on most painful area for up to 12 hrs 1 patch topical DAILY PRN 15 ea 1RF pain Discontinued tizanidine Discontinued Reason: Doctor's Order 4 mg PO BID 30 days PRN 60 tabs 8RF for muscle spasm Coding Level of Care Code New Pt Level 5 (71197) Complex EM visit Add On G2211 Diagnoses Fibromyalgia M79.7
== END 2024-09-12 11:17 | disposition home or self-care (01) ==
PROVIDERS: Visit Provider Student in an Organized Health Care Education/Training Program
DX: M79.7 Fibromyalgia (principal)
CPT/HCPCS: 99205; G2211

== ENCOUNTER → 2024-09-12 11:48 | Outpatient (BNV) | payer OTHER, SELFPAY | PROVIDERS: Visit Provider Radiology Diagnostic Radiology | DX: M79.7 Fibromyalgia (principal); M45.9 Ankylosing spondylitis of unspecified sites in spine | CPT/HCPCS: 72072; 72110; 72202 ==

== ENCOUNTER 2024-10-06 18:51 | Outpatient (REF) | payer OTHER, SELFPAY ==
--- NOTE | ~2024-10-06 | MR_ITS ---
EXAMINATION: MR PELVIS WITHOUT IV CONTRAST HISTORY: M45.9 - Ankylosing spondylitis of unspecified sites in spine. TECHNIQUE: Axial T1 and T2, coronal T1 and STIR, sagittal T2 and fat-suppressed T2, and coronal oblique STIR images of the sacrum and pelvis were obtained. COMPARISON: Correlation is made with plain films of the sacroiliac joints dated 09/12/2024. FINDINGS: There are tiny T2 hyperintense foci in the sacrum bilaterally abutting the sacroiliac joints. No marrow edema is seen on the iliac sides of the joints. Bone marrow signal intensity is otherwise normal. The sacroiliac joints are maintained. There is no ankylosis. No erosions are seen. There is no hip joint effusion. The hip joints are maintained. The visualized muscles demonstrate normal signal intensity. There is trace fluid in the cul-de-sac. There is a nabothian cyst in the cervix on the left. The uterus is otherwise unremarkable. The ovaries are unremarkable. There is no pelvic lymphadenopathy. MR/MR pelvis wo con IMPRESSION: Tiny T2 hyperintense foci in the sacrum abutting sacroiliac joints without evidence of ankylosis or erosions. Electronically signed by: Orion Joyner MD 10/10/2024 08:14 AM [facility] [place]
--- OUTSIDE RECORDS SUMMARY | 2024-10-06 18:55 | XMS_ITS | Clinical Summary ---
Author Organization [employer] Address [address] [place] [address] Care Team Providers Care Warehouse Distribution Specialist Name Role Phone Unavailable Primary Care Provider Unavailabl e Social History Tobacco Use Types Packs/Day Years Used Date Smoking Tobacco: Never Assessed Comments Unknown Sex and Gender Information Value Date Recorded Sex Assigned at Female 04/21/2024 10:40 AM EDT Legal Sex Female 10:40 AM EDT Gender Identity Female 04/21/2024 10:40 AM EDT Sexual Orientation Not on file Plan of Treatment Health Maintenance Due Date Last Done Comments CT Colonography 1979 Colonoscopy 1979 Colorectal Cancer Screening 1979 Depression Screening 1979 FIT DNA/Cologuard 1979 FIT 1979 FOBT 1979 HIV Screening 1979 SDOH Screening 1979 Sigmoidoscopy 1979 Alcohol/Substance Use Screening 1991 Tobacco Screening 1991 Family Planning (PISQ) 1994 Hepatitis C Screening 1997 DTaP/Tdap/Td Vaccines (1 - Tdap) 1998 Hepatitis B Vaccines (1 of 3 - 19+ 3-dose series) 1998 Pap Smear 2000 Cervical Cancer Screening 2009 HPV/Cotest 2009 Mammogram 2019 COVID-19 Vaccine ( - 2023-2 5 season) 2024 Influenza Vaccine (#1) 2024 Zoster Vaccines (1 of 2) 2029 RSV Patients and Pa tients Aged 60 years or older (1 - 1-dose 75+ series) 2054 HIB Vaccines Aged Out No longer eligi ble based on patient's age to complete this topic HPV Vaccines Aged Out No longer eligi ble based on patient's age to complete this topic Hepatitis A Vaccines Aged Out No long er eligible based on patient's age to complete this topic IPV Vaccines Aged Out No longer eligi ble based on patient's age to complete this topic Meningococcal Vaccine Aged Out No hannah loren eligible based on patient's age to complete this topic Pneumococcal Vaccine: Pediat rics (0 to 5 Years) and At-Risk Patients (6 to 64 Years) Aged Out No longer eligible b ased on patient's age to complete this topic RSV under 20 months Aged Out No longe r eligible based on patient's age to complete this topic Rotavirus Vaccines Aged Out No longer eligible based on patient's age to complete this topic
== END 2024-10-06 18:52 | disposition home or self-care (01) ==
LOC: HO.MRI 18:51
PROVIDERS: Visit Provider Student in an Organized Health Care Education/Training Program
DX: M45.9 Ankylosing spondylitis of unspecified sites in spine (principal)
CPT/HCPCS: 72195

== ENCOUNTER → 2024-10-06 19:06 | Outpatient (BNV) | payer OTHER, SELFPAY | PROVIDERS: Visit Provider Radiology Diagnostic Radiology | DX: M54.9 Dorsalgia, unspecified (principal) | CPT/HCPCS: 72195 ==

== ENCOUNTER 2024-10-13 13:47 | Outpatient (AMB) | payer OTHER, SELFPAY ==
--- NOTE | 2024-10-13 13:48 | MHC.OFFVIS ---
Vital Signs 10/13/24 13:56 Height 5 ft 5 in Weight 134 lb 11.239 oz BMI 22.4 BP 134/90 H Blood Pressure Location Lt brachial Position Sitting Respiration 16 Pulse 104 H Pulse Source Pulse Oximeter Pulse Oximetry (%) 98 Oxygen Delivery Method Room Air Intake Visit Reasons: Intake Note: Patient presents for . Feeling electric shock on her toes. Fast palpations when waking up. Allergies No Known Allergies Allergy (Verified 10/13/24 13:53) Medication List - Last Reconciled 10/13/24 by Elysia Sierra MD albuterol sulfate 2.5 mg (3 mL) inhalation Q4-6H PRN albuterol sulfate 90 mcg/actuation 2 puffs inhalation Q4-6H PRN fluticasone propion-salmeterol 45-21 mcg/actuation (Advair HFA) 2 puffs inhalation BID lidocaine 5% 1 patch topical DAILY PRN HPI Comments Details: Patient is a 44-year-old female presents today for follow up of back pain Interval History: Patient last seen 09/12/2024 with me. At that time she was presenting for evaluation of pain. Her symptoms were more consistent with degenerative joint disease with the pain being worse in the evening and stiffness that does not improve with activity. Her exam at that time was significant for fibromyalgia tender points. She was diagnosed with fibromyalgia and workup was sent to rule out any underlying autoimmune disease. Today, Patient feeling the same Duloxetine made her nauseous Baclofen not as efficacious Rheumatologic History: Patient with fibromyalgia. Studies have not shown any evidence of sacroiliitis or underlying autoimmune disorder. Initial history (08/2024): Has been going to pain management for neck pain since 2020 (prior to that was experiencing pain since 2015) Has had imaging of her C-spine which showed degenerative changes. Tried gabapentin - but this was associated with memory loss so this was stopped, tried injections but this was associated with a reaction. EMG negative for carpal tunnel Also complains of fatigue, even after getting a good night sleep With respect to her pain - worse in the evening - associated with stiffness that does not improve with activity (actually worsens with activity) - involves the whole spine: neck, mid and lower back Also has associated numbness and tingling involving both legs (L>R) Does report a rash on her arms and legs (mostly on the arms). Non pruritic. No inciting events No photosensitivity No history of IBD such as UC or Crohn's. No history of blood or mucus in stool No history of eye inflammation Dry eyes, but notes this was post Lasik surgery Also notes some dry mouth. Has a history of cavities Father with history of ankylosing spondylitis Current Rheumatology Medication(s): Baclofen (no longer taking) Duloxetine (no longer taking) [facility] Medical History (Updated 09/12/24 @ 11:05 by Elysia Sierra MD) Fibromyalgia Asthma Anxiety Paresthesias Chronic post-traumatic stress disorder Long-term current use of anxiolytic medication Nonintractable headache Social History Alcohol intake: current Alcohol intake frequency: holidays/special occasions only Patient Tobacco Use Status: Former Tobacco user Review of Systems Const Details: Review of Systems Constitutional: Denies fever, chills, weight loss ENT: Denies vision changes, eye pain or eye redness, dental caries, dry mouth GI: Denies nausea, vomiting, diarrhea, abdominal pain, change in BM Pulm: Denies SOB, PRINCE, hemoptysis, wheezing Cards: Denies chest pain, palpitations Skin: Denies Raynaud's, rash, nail changes, photosensitivity, SOFTWARE DEVELOPER INTERN: Denies headaches, weakness, paresthesias, recurrent falls MSK: as per HPI All other systems reviewed and are unremarkable except noted above Physical Exam Vital signs reviewed Physical Examination CONSTITUITIONAL Patient alert and cooperative. Well appearing and in no apparent painful distress HEENT Conjunctiva and sclera clear. ?Pupils equal round and reactive to light. ?No lymphadenopathy. ? CHEST/RESPIRATORY SYSTEM Normal respiratory effort and able to speak in complete sentences. ?Clear to auscultation bilaterally. ?No crackles, rales, rhonchi, wheezes heard. CARDIAC SYSTEM Regular rate and rhythm. ?S1 and S2 heard no murmurs. ?Radial pulses intact bilaterally MSK Hands: ?Good plant engineer strength bilaterally. No deformities noted. ?No synovitis noted to the MCPs, PIPs or DIPs. ?No tenderness to palpation of these joints. Wrists: ?Full range of motion at the wrists without pain. ?No tenderness to palpation or synovitis noted to the wrists. Elbows: Full range of motion without pain. No tenderness, weakness, swelling, increased warmth or erythema. Shoulders: Full range of motion without pain. No tenderness, weakness, swelling, increased warmth or erythema. Hips: Full range of motion without pain. Hip bursa: No tenderness to palpation Knees: ?Full range of motion. ?No tenderness, swelling, increased warmth or erythema.?No effusion or crepitations Ankles: Full range of motion. ?No tenderness, swelling, increased warmth or erythema.? Feet: ?Negative squeeze test. ?No tenderness to palpation or swelling of the MTPs. Tender points:?No tenderness to palpation of the bilateral trapezius, supraspinatus, greater trochanters, anterior costochondral junctions, bilateral gluteal areas, bilateral suboccipital muscle insertions SKIN Skin intact without rashes. Results Reviewed Results Reviewed: Laboratory Tests 09/12/24 11:46 WBC 6.9 RBC 4.20 Hgb 13.2 Hct 38.7 Plt Count 201 D ESR 5 Sodium 141 Potassium 4.2 Chloride 106 Carbon Dioxide 28 BUN 15 Creatinine 0.67 Total Bilirubin 0.3 AST 28 ALT 37 H Alkaline Phosphatase 61 C-Reactive Protein < 0.10 25-OH Vitamin D Total 53 TSH 2.55 SS-A/Ro Antibody <1.0 NEG SS-B/La Antibody <1.0 NEG HLA-B27 Negative XR T Spine 09/2024 Findings: Normal alignment. No acute fractures or dislocation. No significant degenerative change. XR L Spine 09/2024 Findings: Normal vertebral body alignment. No acute fractures or dislocation. No significant degenerative change. XR SI joint 09/2024 Findings: No fractures or malalignment. Mild sclerosis of the sacroiliac joints anteriorly. No ankylosis. Bone mineralization and soft tissues within normal limits. No unusual radiopaque foreign bodies. Pelvic MRI 09/2024 FINDINGS: There are tiny T2 hyperintense foci in the sacrum bilaterally abutting the sacroiliac joints. No marrow edema is seen on the iliac sides of the joints. Bone marrow signal intensity is otherwise normal. The sacroiliac joints are maintained. There is no ankylosis. No erosions are seen. There is no hip joint effusion. The hip joints are maintained. The visualized muscles demonstrate normal signal intensity. There is trace fluid in the cul-de-sac. There is a nabothian cyst in the cervix on the left. The uterus is otherwise unremarkable. The ovaries are unremarkable. There is no pelvic lymphadenopathy. Assessment & Plan Assessment & Plan (1) Fibromyalgia: Code(s): M79.7 - Fibromyalgia Category: Medical Plan: #Fibromyalgia Patient with primary fibromyalgia based on widespread tender points, elevated widespread pain index and elevated somatic symptom scale. Normal ESR and CRP. Negative HLA B27. MRI with no evidence of ank spond No evidence of any underlying autoimmune disease Plan - Restart Tizanadine 4 mg bid - Naltrexone 50mg. Patient willing to dissolve in water and take 4.5mg - Can continue follow up her primary Plan I spent 35 minutes reviewing the record and labs, seeing the patient, discussing the treatment plan and documenting in the medical record ? Medications: New tizanidine 4 mg PO BID 90 days 180 tabs 1RF muscle spasticity M79.7 - Fibromyalgia naltrexone 50 mg PO DAILY 90 days 90 tabs 1RF M79.7 - Fibromyalgia Coding Level of Care Code Est Pt Level 4 (05488) Diagnoses Fibromyalgia M79.7
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
--- OUTSIDE RECORDS SUMMARY | 2024-10-13 13:51 | XMS_ITS | Clinical Summary ---
Author Organization [employer] Address [address] [facility] [address] [facility] [address] [place] [address] Care Team Providers Care Building Equipment Operator Name Role Phone Unavailable Primary Care Provider [...] 5 Years) and At-Risk Patients (6 to 49) Years) Aged Out No longer eligible b ased on patient's age to complete this topic RSV under 20 months Aged Out No longe r eligible based on patient's age to complete this topic Rotavirus Vaccines Aged Out No longer eligible based on patient's age to complete this topic
[2024-10-13 13:56] VITALS: BP 134/90; PULSE 104; RESP 16; O2SAT 98; BMI 22.4
== END 2024-10-13 14:34 | disposition home or self-care (01) ==
PROVIDERS: Visit Provider Student in an Organized Health Care Education/Training Program
DX: M79.7 Fibromyalgia (principal)
CPT/HCPCS: 99214

== ENCOUNTER → 2024-10-13 13:47 | Outpatient (BNVA) | payer OTHER, SELFPAY | PROVIDERS: Visit Provider Student in an Organized Health Care Education/Training Program | DX: M79.7 Fibromyalgia (principal) | CPT/HCPCS: 99212 ==

== ENCOUNTER 2025-01-27 20:08 | Emergency (ER) | payer OTHER, SELFPAY ==
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
[2025-01-27 20:20] VITALS: BP 151/83; PULSE 91; RESP 18; TEMP 36.7; O2SAT 100; BMI 21.7
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
--- OUTSIDE RECORDS SUMMARY | 2025-01-27 21:16 | XMS_ITS | Clinical Summary ---
Author Organization [employer] Address [address] [facility] [address] [place] [address] Care Team Providers Care Stummel Selector Name Role Phone Unavailable Primary Care Provider [...] patient's age to complete this topic Meningococcal B Vaccine Aged Out No l onger eligible based on patient's age to complete [...]
[2025-01-27 22:00] VITALS: BP 155/120; PULSE 81; RESP 18; TEMP 36.9; O2SAT 99
[2025-01-27] MEDS: Cyclobenzaprine HCl 10 MG TABLET PO (22:36)
[2025-01-27] MEDS: Ketorolac Tromethamine 30 MG/ML VIAL IM (22:36)
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
[2025-01-27 23:50] VITALS: BP 147/94; PULSE 70; RESP 16; TEMP 36.4; O2SAT 100
[2025-01-28 01:07] VITALS: BP 147/94; PULSE 70; RESP 16; TEMP 36.4; O2SAT 100
== END 2025-01-28 01:09 | disposition home or self-care (01) ==
PROVIDERS: Emergency Provider Emergency Medicine
DX: S16.1XXA Strain of muscle, fascia and tendon at neck level, initial encounter (principal); S39.012A Strain of muscle, fascia and tendon of lower back, initial encounter; V43.52XA Car driver injured in collision with other type car in traffic accident, initial encounter; Y93.9 Activity, unspecified; Y92.410 Unspecified street and highway as the place of occurrence of the external cause; Y99.9 Unspecified external cause status; M54.2 Cervicalgia
CPT/HCPCS: 72040; 72100; 72125; 96372; 99284; J1885

== ENCOUNTER → 2025-01-27 20:27 | Outpatient (BNV) | payer OTHER, SELFPAY | PROVIDERS: Emergency Provider Emergency Medicine; Visit Provider Radiology Neuroradiology | DX: M54.2 Cervicalgia (principal); V89.2XXA Person injured in unspecified motor-vehicle accident, traffic, initial encounter; M51.360 Other intervertebral disc degeneration, lumbar region with discogenic back pain only | CPT/HCPCS: 72040; 72100; 72125 ==

== ENCOUNTER 2025-05-30 15:42 | Outpatient (AMB) | payer OTHER, MEDICAID, SELFPAY ==
[2025-05-30 15:57] VITALS: BP 91/52; PULSE 69; RESP 18; O2SAT 99; BMI 22.5
--- NOTE | 2025-05-30 15:57 | MHC.OFFVIS ---
Vital Signs 05/30/25 15:57 Height 5 ft 5 in Weight 135 lb BMI 22.5 BP 91/52 L Blood Pressure Location Lt brachial Position Sitting Respiration 18 Pulse 69 Pulse Oximetry (%) 99 Oxygen Delivery Method Room Air Intake Visit Reasons: Follow Up Pesticide Applicator Required: No Allergies No Known Allergies Allergy (Verified 01/27/25 20:23) HPI Comments Details: Chio is back in my office with continuance complain on widespread pain all over her body. Last time she was sent for rheumatology consult because she was fairly convinced that she is suffering from ankylosing spondylitis. No evidence of ankylosing spondylitis was found on thorough exam and lab work performed by our Rheumatology colleagues. Therefore the diagnosis of the patient is fibromyalgia. She used to receive tizanidine and this medication list help her to sleep. We discussed possibility of treating her pain with continuation of tizanidine. I also offered her to introduced Savella but I also informed her about side effects of the medication. We decided that she will try tizanidine at this time,, I also recommended her low impact aerobic exercise and physical therapy to help her condition. I will send her for physical therapy. I recommended her to perform water aerobics or swimming as the form of I aerobic exercise to help her condition. Patient is very negative about injections or procedures. In the past I offered her spinal cord stimulator [employer] to some how help her pain. Patient adamantly refused. It is history of unsuccessful injections delineated as below. Her symptoms include signs of mental fatigue, difficulty sleeping, overall weakness and bilateral lower extremities giving up under her. She was under my care about 1 year ago. She received therapeutic C7-T1 epidural steroid injection in cervical spine. She received also therapeutic medial branch block C4-C5 C6 bilateral. She reported that both injections made her feel worse. She adamantly refuses to go for any injections today. She was in the past tried on gabapentin and gabapentin caused severe memory loss. She stopped gabapentin and memory restored. I suspect if Lyrica will be started on her it will be the same effect if not even worse. She recently learned that her father was diagnose with ankylosing spondylitis and she is interested to find out whether or not she has ankylosing spondylitis since it is inherited disease. She adamantly refuses to go for the injections. With diagnosis of ankylosing spondylitis she will be referred to Rheumatology. I suspect this patient is suffering from fibromyalgia. If no rheumatological conditions will be found on diagnostic studies she is welcome to come back and we will continue to treat her with fibromyalgia. I explained to her that [place] reliable and scientific proved treatment for fibromyalgia is low impact aerobic exercise. I recommended her to find the gym with a good swimming pool and swim in this gym at least once a day. She also can do elliptical machine or stationary bicycle as a substitute if she is not able to go to the gym every day. [facility] Medical History (Updated 01/29/25 @ 00:01 by Waldemar Roberts) Fibromyalgia Asthma Anxiety Paresthesias Chronic post-traumatic stress disorder Long-term current use of anxiolytic medication Nonintractable headache Social History Alcohol intake: current Alcohol intake frequency: holidays/special occasions only Patient Tobacco Use Status: Former Tobacco user Review of Systems Const All systems reviewed & are unremarkable except as noted in HPI and below Eyes Denies photophobia ENT Reports Normal hearing present Neuro Reports Normal hearing present Physical Exam Vital Signs: Last Vital Signs Pulse 69 05/30/25 15:57 Resp 18 05/30/25 15:57 BP 91/52 L 05/30/25 15:57 Pulse Ox 99 05/30/25 15:57 Oxygen Delivery Method Room Air 05/30/25 15:57 BMI result Body Mass Index 22.5 Const General: cooperative, healthy appearing, no acute distress and alert Orientation/consciousness: patient oriented x3 Limitations: No ambulation with cane, No ambulation with walker and No wheelchair HEENT Head: Yes normal to inspection, Yes normocephalic and Yes atraumatic Ears: hearing grossly normal bilaterally Eyes General: appearance normal, both eyes and all related structures Eyelids: Yes eyelids normal Sclerae: sclerae normal Pupils: Equal, round and reactive pupils present EOM: EOMs intact bilaterally Direct Ophthalmoscopy: No photophobia Neck Neck: Yes normal visual inspection, Yes full ROM, Yes trachea midline and Yes no JVD Chest Chest palpation & inspection: normal inspection of the chest Resp Effort & Inspection: normal respiratory effort, able to speak in complete sentences and no audible wheezes Cardio Jugular venous distension: no JVD Palpation: other (no appreciable rhythmic abnormalities) Peripheral pulses: radial pulses present (no palpable rhythmic abnormalities detected) bilateral and other Back/Spine/Pelvis Other: Patient with decreased ROM in all planes. Most discomfort caused by cervical extension. Spurling compression test + bilaterally. Elvey's tension test positive. Pain is unaffected with Spurling manuever with retraction. Elvey's tension test positive on bilaterally, with radiation of pain from neck to wrist. Lhermitte's test negative. Patient demonstrated 5/5 motor strength of bilateral upper extremities. DTRs intact and symmetrical. 2+ radial pulses. Gerald test, pelvis destruction test, pelvic compression test, and Gaenslen test, all positive on the right. Cervical Spine: cervical ROM normal, pain with cervical ROM and Cervical spine tenderness Neuro General: patient oriented x3, gait normal, moves all extremities and Normal light touch and pain sensation Cranial nerves: Yes Equal, round and reactive pupils present and Yes Normal hearing present Cognition (Neuro): normal cognition Gait exam (Neuro): Normal gait present Motor exam (neuro): 5/5 motor strength present throughout Extrem Other: Phalen test and reverse Phalen tests are positive for carpal tunnel on the right. General: Yes normal to inspection, Yes full ROM and Yes no pedal edema Psych Appearance: grossly normal Speech and movement: Normal speech and movement present and Clear speech present Affect: normal affect Attitude: cooperative Thought process: Normal thought process present Thought content: Normal thought content present Insight: Good insight present (Psych) Judgement: Good judgement present (Psych) Assessment & Plan Assessment & Plan (1) Spondylosis of cervical spine with radiculopathy: Code(s): M47.22 - Other spondylosis with radiculopathy, cervical region Category: Medical (2) Chronic pain syndrome: Code(s): G89.4 - Chronic pain syndrome Category: Medical (3) Fibromyalgia: Code(s): M79.7 - Fibromyalgia Category: Medical Plan This patient continues to complain on pain which is stemming out from fibromyalgia. She does not believe me that the solution of her condition is actually low-impact aerobic exercise and physical therapy. She still wants me to prescribe some ?magic ?pill which would help her condition. I do not mind to try Savella on her as long as she understands that this is SNRI with multiple side effects and complications. At this time I prescribed her tizanidine. In the future I will be more inclined to consider some other antidepressants however patient is negative about SSRIs. Prolonged and difficult conversation was held today were risks and benefits of different forms of treatment of fibromyalgia were discussed with the patient. I am sending her to physical therapy. I will start her again on tizanidine. If those effort in 1 month's will not improve her condition, on her next appointment we will discuss Savella as well as possibility of interventional pain management to treat her pain. Orders: Orders PT Evaluation and Treatment Today G89.4 - Chronic pain syndrome, M47.22 - Other spondylosis with radiculopathy, cervical region, M79.7 - Fibromyalgia Medications: Changed From tizanidine 4 mg PO BID 90 days 180 tabs 1RF muscle spasticity M79.7 - Fibromyalgia To tizanidine 4 mg PO TID 270 tabs 11RF muscle spasticity 90 days M79.7 - Fibromyalgia Patient Instructions: I here by testify that I spent 45 minutes in conversation with this patient as well as evaluating her prior records, planning her care, and organizing this note. Coding Level of Care Code Est Pt Level 5 (34493) Diagnoses Spondylosis of cervical spine with radiculopathy M47.22 Chronic pain syndrome G89.4 Fibromyalgia M79.7
--- OUTSIDE RECORDS SUMMARY | 2025-05-30 19:02 | XMS_ITS | Clinical Summary ---
Author Organization [facility] Address [address] [place] [address] Care Team Providers Care Director Of Assessment Name Role Phone Unavailable Primary Care Provider Unavailabl e Encounters Date Type Department Care Team Description 05/16/2025 Population Health Risk Score [facility] ([facility]) Department [address] [place] [address] Provider, Population Health Generic from Last 3 Months Social History Tobacco Use Types Packs/Day Years [...] FIT 1979 FOBT 1979 HIV Screening 1979 Sigmoidoscopy 1979 Disability Screening 1979 Alcohol/Substance Use Screening 1991 Tobacco Screening 1991 Family Planning (PISQ) 1994 HPV Vaccines (1 - 3-dose series) 1994 Hepatitis C Screening 1997 DTaP/Tdap/Td Vaccines (1 - Tdap) 1998 Hepatitis B Vaccines (1 of 3 - 19+ 3-dose series) 1998 Pap Smear 2000 Cervical Cancer Screening 2009 HPV/Cotest 2009 Mammogram 2019 COVID-19 Vaccine ( - 2023-2 5 season) 2025 Influenza Vaccine (#1) 2025 Zoster Vaccines (1 of 2) 2029 RSV [...] Years) and At-Risk Patients (6 to 49) Years Aged Out No longer eligible b ased on patient's age to complete this topic RSV under 20 months Aged Out No longe r eligible based on patient's age to complete this topic Rotavirus Vaccines Aged Out No longer eligible based on patient's age to complete this topic
== END 2025-05-30 16:18 | disposition home or self-care (01) ==
LOC: HO.PMC 15:42
PROVIDERS: Visit Provider Anesthesiology
DX: M47.22 Other spondylosis with radiculopathy, cervical region (principal); G89.4 Chronic pain syndrome; M79.7 Fibromyalgia
CPT/HCPCS: 99215